=== PATIENT | female | born 1945 | race African-American/Black ===

== ENCOUNTER 2017-03-09 14:06 | Inpatient (IN) | payer OTHER ==
[2017-03-09 14:53] VITALS: BMI 20.5
[2017-03-09] MEDS ORDERED: MINERAL OIL ENEMA 133 ML ENEMA PR ONE ×2 (15:39→22:03)
--- NOTE | 2017-03-09 15:39 | PDOC ---
History of Present Illness - General History Source: Patient, Old Records Exam Limitations: No Limitations <Mireille Mendez - Last Filed: 03/09/17 15:36> - General History Source: Patient, Old Records Exam Limitations: No Limitations - History of Present Illness Initial Comments: 03/09/17 14:49 The patient is a 72-year-old woman, accompanied by family, with a significant past medical history of cerebrovascular accident, hypertension and end-stage renal disease (on hemodialysis q. MWF; last dialysis was on Thursday at 15:00PM without complications) who presents to the emergency department with complaints of constipation. She states that she arrived form [place] on February 20 and since then she has not had a bowel movement. She reports she has not even been able to pass gas. She denies any decrease appetite, fever, chills, generalized weakness. She reports she recently underwent surgery (left foot amputation on 02/24/2017; for which she is at [facility] for rehabilitation. There, she expressed her concerns of constipation. She states that she was given an enema and suppository which provided no relief. No other complaints. She denies fever, chills, diaphoresis, generalized weakness. She denies chest pain, shortness of breath, cough She denies abdominal pain, nausea, vomiting, diarrhea, dysuria, hematuria, urinary frequency and urgency, flank pain. Allergies: Acetaminophen. Oxycodone HCL Past Surgical History: Colectomy. Status post left foot amputation. Social History: Never smoked. No EtOH and recreational drug use. Check Pilot: Dr. Ailyn Cardenas Vascular Surgeon: Dr. Ascencion Cardenas <Kirti Horne - Last Filed: 03/09/17 16:39> <Lurdes Heard - Last Filed: 03/09/17 21:07> <Hanna Prasad - Last Filed: 03/09/17 21:13> - General Chief Complaint: Constipation Stated Complaint: BOWEL OBSTRUCTION Time Seen by Provider: 03/09/17 14:49 Past History - Past Medical History CVA: Yes Diabetes: Yes Dialysis: Yes (M-W-F) Disorders: Yes (DIALYSIS-M/W/FR) HTN: Yes - Surgical History Abdominal Surgery: Yes (COLECTOMY) - Immunization History Immunization Up to Date: Yes - Psycho/Social/Smoking Cessation Hx Anxiety: No Suicidal Ideation: No Smoking History: Never smoked Have you smoked in the past 12 months: No Information on smoking cessation initiated: No Hx Alcohol Use: No Drug/Substance Use Hx: No Substance Use Type: None <Mireille Mendez - Last Filed: 03/09/17 15:36> <Kirti Horne - Last Filed: 03/09/17 16:39> <Lurdes Heard - Last Filed: 03/09/17 21:07> <ShaniceHanna - Last Filed: 03/09/17 21:13> - Past Medical History Allergies/Adverse Reactions: Allergies Allergy/AdvReac Type Severity Reaction Status Date / Time No Known Allergies Allergy Verified 03/09/17 14:44 Home Medications: Ambulatory Orders Aa/Hydrolyzed Collagen, Whey [Lps Neutral Flavor Liquid] 960 ml PO DAILY Acetaminophen 325 mg PO QID 03/09/17 Amlodipine Besylate [Norvasc -] 10 mg PO DAILY 03/09/17 Aspirin [ASA -] 81 mg PO DAILY 03/09/17 B Complex W-C No.20/Folic Acid [Triphrocaps Softgel] 1 mg PO DAILY 03/09/17 Calcium Acetate [Phoslo -] 667 mg PO TIDCM 03/09/17 Clopidogrel Bisulfate [Clopidogrel] 75 mg PO DAILY 03/09/17 Docusate Sodium [Colace -] 100 mg PO DAILY 03/09/17 Hydralazine HCl [Apresoline -] 25 mg PO TID 03/09/17 Lisinopril [Zestril] 40 mg PO DAILY 03/09/17 Morphine Sulfate 15 mg PO QID 03/09/17 Sennosides [Senna] 8.6 mg PO DAILY 03/09/17 Review of Systems - Review of Systems Able to Perform ROS?: Yes Comments:: 03/09/17 14:49 GENERAL/CONSTITUTIONAL: No fever or chills. No weakness. HEAD, EYES, EARS, NOSE AND THROAT: No change in vision. No ear pain or discharge. No sore throat. CARDIOVASCULAR: No chest pain or shortness of breath. RESPIRATORY: No cough, wheezing, or hemoptysis. GASTROINTESTINAL: Yes: Constipation. No nausea, vomiting, diarrhea. GENITOURINARY: No dysuria, frequency, or change in urination. MUSCULOSKELETAL: No joint or muscle swelling or pain. No neck or back pain. SKIN: No rash NEUROLOGIC: No headache, vertigo, loss of consciousness, or change in strength/ sensation. ENDOCRINE: No increased thirst. No abnormal weight change. HEMATOLOGIC/LYMPHATIC: No anemia, easy bleeding, or history of blood clots. ALLERGIC/IMMUNOLOGIC: No hives or skin allergy. <Kirti Horne - Last Filed: 03/09/17 16:39> *Physical Exam - Vital Signs Last Vital Signs Temp Pulse Resp BP Pulse Ox 98.3 F 62 15 195/72 100 03/09/17 14:33 03/09/17 14:33 03/09/17 14:33 03/09/17 14:33 03/09/17 14:33 <Mireille Mendez - Last Filed: 03/09/17 15:36> - Vital Signs Last Vital Signs Temp Pulse Resp BP Pulse Ox 98.3 F 62 15 195/72 100 03/09/17 14:33 03/09/17 14:33 03/09/17 14:33 03/09/17 14:33 03/09/17 14:33 - Physical Exam Comments: 03/09/17 14:49 GENERAL: Awake, alert, and fully oriented, in no acute distress HEAD: No signs of trauma EYES: PERRLA, EOMI, sclera anicteric, conjunctiva clear ENT: Auricles normal inspection, hearing grossly, nares patent, oropharynx clear without exudates. NECK: Normal ROM, supple, no lymphadenopathy, JVD, or masses LUNGS: Breath sounds equal, clear to auscultation bilaterally. No wheezes, and no crackles HEART: Regular rate and rhythm, normal S1 and S2, no murmurs, rubs or gallops ABDOMEN: Soft, slight right lower quadrant tenderness to palpation normoactive bowel sounds. No guarding, no rebound. No masses EXTREMITIES: There is a left upper extremity AV fistula with palpable thrill. Status post left foot amputation. Dressings intact. No clubbing or cyanosis. No cords, erythema, edema or tenderness. NEUROLOGICAL: Cranial nerves II through XII grossly intact. Normal speech. <Kirti Horne - Last Filed: 03/09/17 16:39> - Vital Signs Last Vital Signs Temp Pulse Resp BP Pulse Ox 98.3 F 62 15 195/72 100 03/09/17 14:33 03/09/17 14:33 03/09/17 14:33 03/09/17 14:33 03/09/17 14:33 <Lurdes Heard - Last Filed: 03/09/17 21:07> - Vital Signs Last Vital Signs Temp Pulse Resp BP Pulse Ox 98.3 F 62 15 195/72 100 03/09/17 14:33 03/09/17 14:33 03/09/17 14:33 03/09/17 14:33 03/09/17 14:33 <Hanna Prasad - Last Filed: 03/09/17 21:13> ED Treatment Course - RADIOLOGY Radiology Studies Ordered: Category Date Time Status KUB (KID UR & BLAD) [RAD] Stat Radiology 03/09/17 15:05 Ordered <Mireille Menedz - Last Filed: 03/09/17 15:36> - LABORATORY CBC & Chemistry Diagram: 03/09/17 15:05 03/09/17 15:05 - ADDITIONAL ORDERS Additional order review: Laboratory Results 03/09/17 15:05 Sodium 137 Potassium 4.3 D Chloride 95 L Carbon Dioxide 28 Anion Gap 14 BUN 43 H D Creatinine 8.4 H* Creat Clearance w eGFR 4.68 Random Glucose 96 Calcium 10.9 H D Phosphorus 4.4 Magnesium 2.7 H Total Bilirubin 0.4 D AST 11 L D ALT 7 L Alkaline Phosphatase 105 D Creatine Kinase 39 Troponin I < 0.02 Total Protein 7.4 Albumin 3.0 L Lipase 68 L 03/09/17 15:05 RBC 3.15 L D MCV 89.3 MCHC 30.8 L RDW 19.6 H MPV 9.3 Neutrophils % 80.1 D Lymphocytes % 10.1 D Monocytes % 8.4 Eosinophils % 1.1 Basophils % 0.3 - Medications Given in the ED: ED Medications Discontinued Medications Generic Name Dose Route Start Last Admin Trade Name Freq PRN Reason Stop Dose Admin Mineral Oil 133 ml 03/09/17 15:39 03/09/17 17:16 Fleet Mineral Oil Rectal Enema - GA 03/09/17 15:40 133 ml NOW ONE Administration <Lurdes Heard - Last Filed: 03/09/17 21:07> - LABORATORY CBC & Chemistry Diagram: 03/09/17 15:05 03/09/17 15:05 - ADDITIONAL ORDERS Additional order review: Laboratory Results 03/09/17 15:05 Sodium 137 Potassium 4.3 D Chloride 95 L Carbon Dioxide 28 Anion Gap 14 BUN 43 H D Creatinine 8.4 H* Creat Clearance w eGFR 4.68 Random Glucose 96 Calcium 10.9 H D Phosphorus 4.4 Magnesium 2.7 H Total Bilirubin 0.4 D AST 11 L D ALT 7 L Alkaline Phosphatase 105 D Creatine Kinase 39 Troponin I < 0.02 Total Protein 7.4 Albumin 3.0 L Lipase 68 L 03/09/17 15:05 RBC 3.15 L D MCV 89.3 MCHC 30.8 L RDW 19.6 H MPV 9.3 Neutrophils % 80.1 D Lymphocytes % 10.1 D Monocytes % 8.4 Eosinophils % 1.1 Basophils % 0.3 - Medications Given in the ED: ED Medications Discontinued Medications Generic Name Dose Route Start Last Admin Trade Name Freq PRN Reason Stop Dose Admin Mineral Oil 133 ml 03/09/17 15:39 03/09/17 17:16 Fleet Mineral Oil Rectal Enema - GA 03/09/17 15:40 133 ml NOW ONE Administration - Consult/PCP Time Called: 21:12 (Dr. Perez will make sure the patient receives dialysis in the morning.) Case discussed with personal care physician: Chris Nolasco <Hanna Prasad - Last Filed: 03/09/17 21:13> Medical Decision Making - Medical Decision Making 03/09/17 15:36 72-year-old female with history of hypertension, CVA, end-stage renal disease on hemodialysis Thursday status post a B patient of toes on left foot presents the emergency department with constipation 3 weeks. The patient is passing gas and denies abdominal pain, nausea, vomiting. Differential diagnosis includes but is not limited to: Constipation secondary to opiate use, slow transit time, fecal impaction, dehydration, electrolyte abnormality, toxic/ metabolic derangement. Plan: 1. Labs 2. KUB 3. Fleet enema 4. Observe and reevaluate <Mireille Mendez - Last Filed: 03/09/17 15:36> *DC/Admit/Observation/Transfer - Attestations Physician Attestion: 03/09/17 15:38 I, Dr. Mireille Mendez, attest that the scribes documentation that appears above has been prepared under my direction and personally reviewed by me in its entirety. I confirmed that the note above accurately reflects all work, treatment, procedures, and medical decision-making performed by me. <Mireille Mendez - Last Filed: 03/09/17 15:36> - Attestations Scribe Attestion: 03/09/17 14:49 Documentation prepared by Kirti Horne, acting as biomedical technician for Mireille Mendez MD. <Kirti Horne - Last Filed: 03/09/17 16:39> - Discharge Dispostion Admit: Yes <Lurdes Heard - Last Filed: 03/09/17 21:07> <Hanna Prasad - Last Filed: 03/09/17 21:13> Diagnosis at time of Disposition: Impaction of colon, ESRD (end stage renal disease) Constipation Qualifiers: Constipation type: other constipation type Qualified Code(s): K59.09 - Other constipation Anemia Qualifiers: Anemia type: other cause Other causes of anemia: other cause, not classified Qualified Code(s): D64.89 - Other specified anemias - Referrals Referrals: Raymon Hernandez MD [Primary Care Provider] -
[2017-03-09 17:51] LABS: ANION GAP 14 (8-16); CALCIUM 10.9 mg/dL (8.5-10.1); CO2 28 mmol/L (21-32); GLUCOSE,RANDOM 96 mg/dL (74-106); MAGNESIUM 2.7 mg/dL (1.8-2.4); PHOSPHOROUS 4.4 mg/dL (2.5-4.9); SGOT/AST 11 U/L (15-37); SGPT/ALT 7 U/L (12-78)
[2017-03-09 17:56] LABS: ALK PHOS 105 U/L (45-117); BILIRUBIN,TOTAL 0.4 mg/dL (0.2-1.0); TOT PROT 7.4 g/dl (6.4-8.2); TROPONIN I < 0.02 ng/ml (0.00-0.05)
[2017-03-09 17:59] LABS: CREATININE 8.4 mg/dL (0.55-1.02)
[2017-03-09 18:46] LABS: BASOPHIL 0.3 % (0-2.0); EOSINOPHIL 1.1 % (0-4.5); MCH 27.5 pg (25.7-33.7); MCHC 30.8 g/dl (32.0-36.0); MEAN CELL VOLUME 89.3 fl (80-96); MEAN PLT VOLUME 9.3 fl (7.5-11.1); NEUTROPHILS 80.1 % (42.8-82.8); PLATELET COUNT 323 K/MM3 (134-434); RDW 19.6 % (11.6-15.6); WHITE BLOOD COUNT 11.1 K/mm3 (4.0-10.0)
[2017-03-09] MEDS ORDERED: morphine CARPU-JECT 2 MG/1 ML DISP.SYRIN IVPUSH ONE (21:55)
[2017-03-09] MEDS ORDERED: morphine CARPU-JECT 2 MG/1 ML DISP.SYRIN IVPUSH PRN (22:03)
[2017-03-09] MEDS ORDERED: MAGNESIUM HYDROX 2400MG/30ML ORAL SUSPENSION 30 ML CUP PO PRN (22:03)
[2017-03-09] MEDS ORDERED: ONDANSETRON 4 MG/2 ML VIAL IVPB PRN (22:03)
[2017-03-09] MEDS ORDERED: ACETAMINOPHEN 1000 MG/100 ML VIAL (NON FORMULARY) IVPB PRN (22:03)
[2017-03-09] MEDS ORDERED: DEXTROSE 5%-NORMAL SALINE 1,000 ML IV SCH (22:15)
[2017-03-10 00:28] LABS: MCH 27.5 pg (25.7-33.7); MCHC 30.9 g/dl (32.0-36.0); MEAN PLT VOLUME 9.3 fl (7.5-11.1); PLATELET COUNT 304 K/MM3 (134-434); RDW 18.9 % (11.6-15.6); WHITE BLOOD COUNT 9.9 K/mm3 (4.0-10.0)
[2017-03-10 00:29] LABS: URINE APPEARANCE SLCLOUDY; URINE BILIRUBIN NEGATIVE (NEGATIVE); URINE BLOOD NEGATIVE (NEGATIVE); URINE COLOR DKYELLOW; URINE GLUCOSE (UA) NEGATIVE (NEGATIVE); URINE KETONE NEGATIVE (NEGATIVE); URINE NITRITE NEGATIVE (NEGATIVE); URINE UROBILINOGEN NEGATIVE E.U./dl (0.2-1.0)
[2017-03-10 00:35] LABS: URINE LEUK ESTERASE TRACE (NEGATIVE); URINE PROTEIN 3+ (NEGATIVE)
[2017-03-10 00:39] LABS: URINE BACTERIA FEW /hpf (NONE SEEN); URINE MUCUS RARE; URINE RBC 3 /hpf (0-3); URINE WBC 10 /hpf (3-5)
[2017-03-10 00:52] LABS: ALBUMIN 2.9 g/dl (3.4-5.0); BILIRUBIN,TOTAL 0.4 mg/dL (0.2-1.0); CALCIUM 10.6 mg/dL (8.5-10.1); TOT PROT 7.4 g/dl (6.4-8.2)
[2017-03-10 00:57] LABS: COCKROFT - GAULT 4.692
[2017-03-10 09:50] LABS: MAGNESIUM 2.7 mg/dL (1.8-2.4); PHOSPHOROUS 4.3 mg/dL (2.5-4.9)
[2017-03-10] MEDS ORDERED: POLYETHYLENE GLYCOL 3350 119 GM BTL PO SCH ×2 (10:00→22:00)
[2017-03-10] MEDS ORDERED: EPOETIN ALFA 10,000 UNIT/1 ML VIAL IVPUSH ONE (10:00)
[2017-03-10] MEDS ORDERED: HEPARIN NA (PORCINE) 5,000 UNITS/ML 1ML VIAL IVPUSH ONE (10:00)
--- NOTE | 2017-03-10 10:04 | HP ---
Admitting History and Physical - Primary Care Physician PCP: Raymon Hernandez - Admission Chief Complaint: sent in for constipation History of Present Illness: The patient is a 72-year-old woman, accompanied by family, with a significant past medical history of cerebrovascular accident, hypertension and end-stage renal disease (on hemodialysis q. MWF; last dialysis was on Thursday at 15:00PM without complications) who presents to the emergency department with complaints of constipation. . She reports she recently underwent surgery (left foot amputation sec to toe necrosis on 02/24/2017;at [facility] where she also have left foot angiogram and angioplasty and was then sent to [facility] for rehabilitation. There, she expressed her concerns of constipation. She states that she was given an enema and suppository, miralax and stool softners which provided no relief. patient has been on opioid pain medication after the foot surgery She denies fever, chills, diaphoresis, generalized weakness. She denies chest pain, shortness of breath, cough She denies abdominal pain, nausea, vomiting, diarrhea, dysuria, hematuria, urinary frequency and urgency, flank pain. Allergies: Acetaminophen. Oxycodone HCL Past Surgical History: Colectomy. Status post left foot amputation. Social History: Never smoked. No EtOH and recreational drug use. Assembler Installer General: Dr. Ailyn Cardenas Vascular Surgeon: Dr. Ascencion Cardenas History Source: Patient, Medical Record - Past Medical History Cardiovascular: Yes: HTN, Other (PAD) Renal/: Yes: Hemodialysis - Past Surgical History Past Surgical History: Yes: AV Fistula/Graft Additional Past Surgical History: left foot transmetatarsal amputation - Smoking History Smoking history: Never smoked Have you smoked in the past 12 months: No - Alcohol/Substance Use Hx Alcohol Use: No Home Medications - Allergies Allergies/Adverse Reactions: Allergies Allergy/AdvReac Type Severity Reaction Status Date / Time oxycodone Allergy Intermediate Verified 03/10/17 07:15 - Home Medications Home Medications: Ambulatory Orders Aa/Hydrolyzed Collagen, Whey [Lps Neutral Flavor Liquid] 960 ml PO DAILY Acetaminophen 325 mg PO QID 03/09/17 Amlodipine Besylate [Norvasc -] 10 mg PO DAILY 03/09/17 Aspirin [ASA -] 81 mg PO DAILY 03/09/17 B Complex W-C No.20/Folic Acid [Triphrocaps Softgel] 1 mg PO DAILY 03/09/17 Calcium Acetate [Phoslo -] 667 mg PO TIDCM 03/09/17 Clopidogrel Bisulfate [Clopidogrel] 75 mg PO DAILY 03/09/17 Docusate Sodium [Colace -] 100 mg PO DAILY 03/09/17 Hydralazine HCl [Apresoline -] 25 mg PO TID 03/09/17 Lisinopril [Zestril] 40 mg PO DAILY 03/09/17 Morphine Sulfate 15 mg PO QID 03/09/17 Sennosides [Senna] 8.6 mg PO DAILY 03/09/17 Review of Systems - Review of Systems Gastrointestinal: reports: Constipation Physical Examination Vital Signs: Vital Signs Temperature 98.6 F 03/10/17 09:15 Pulse Rate 57 L 03/10/17 09:15 Respiratory Rate 18 03/10/17 09:15 Blood Pressure 128/49 03/10/17 09:15 O2 Sat by Pulse Oximetry (%) 98 03/09/17 23:00 Findings/Remarks: currently getting HD no BM as yet, got mineral oil enema Constitutional: Yes: Calm, Thin Cardiovascular: Yes: Regular Rate and Rhythm, S1, S2 Respiratory: Yes: CTA Bilaterally Gastrointestinal: Yes: Soft, Hypoactive Bowel Sounds, Other (no tenderness) Edema: No Neurological: Yes: Alert, Oriented Labs: CBC, BMP 03/10/17 00:12 03/10/17 00:12 Imaging - Results X-ray: Report Reviewed Problem List - Problems (1) Constipation Assessment/Plan: sec to narcotic pain medicaiton and possible slow transit time/ileus will get surgery and GI to see patient NPO for now iv fluids monitor lytes Code(s): K59.00 - CONSTIPATION, UNSPECIFIED Qualifiers: Constipation type: other constipation type Qualified Code(s): K59.09 - Other constipation (2) ESRD (end stage renal disease) Assessment/Plan: HD per renal Code(s): N18.6 - END STAGE RENAL DISEASE (3) PAD (peripheral artery disease) Assessment/Plan: s/p left foot transmatatarsal amputation vascular consult/wound care hold plavix and aspirin for now in patient requires any interventional procedure Code(s): I73.9 - PERIPHERAL VASCULAR DISEASE, UNSPECIFIED (4) Anemia Assessment/Plan: sec to ESRD epogen during HD Code(s): D64.9 - ANEMIA, UNSPECIFIED Qualifiers: Other causes of anemia: other cause, not classified Qualified Code(s): D64.89 - Other specified anemias (5) HTN (hypertension) Assessment/Plan: curently BP is ok if elevates then restart norvasc 10mg and hydralazine 25mg tid Code(s): I10 - ESSENTIAL (PRIMARY) HYPERTENSION
--- NOTE | 2017-03-10 11:37 | CONSULT ---
Consult - text type - Consultation Consultation Note: Renal Consult for ESRD on HD This is a 72 year old woman with PMhx of ESRD on HD (MWF), DM Type 2, Hypertension, CVA, PVD s/p recent TMA, Hx of partial Colectomy who presented with complaints of constipation. Pt reports coming from [place] on the 20 of February and has not had a BM since then. S/p TMA at [facility] after coming from [place] and has been on opioid pain meds. Denies any N/V. No Abd pain. no fever or chills. Last dialysis as an outpatient was Thursday. Tolerating dialysis well today. PMhx: as above Allergies: Oxycodone Family hx: NC Social hx: No T/A/D ROS: as per HPI, all other pertinent ros negative Home Medications Medication Instructions Recorded Aa/Hydrolyzed Collagen, Whey [Lps 960 ml PO DAILY 03/09/17 Neutral Flavor Liquid] Acetaminophen 325 mg PO QID 03/09/17 Amlodipine Besylate [Norvasc -] 10 mg PO DAILY 03/09/17 Aspirin [ASA -] 81 mg PO DAILY 03/09/17 B Complex W-C No.20/Folic Acid 1 mg PO DAILY 03/09/17 [Triphrocaps Softgel] Calcium Acetate [Phoslo -] 667 mg PO TIDCM 03/09/17 Clopidogrel Bisulfate [Clopidogrel] 75 mg PO DAILY 03/09/17 Docusate Sodium [Colace -] 100 mg PO DAILY 03/09/17 Hydralazine HCl [Apresoline -] 25 mg PO TID 03/09/17 Lisinopril [Zestril] 40 mg PO DAILY 03/09/17 Morphine Sulfate 15 mg PO QID 03/09/17 Sennosides [Senna] 8.6 mg PO DAILY 03/09/17 Vital Signs Temperature 98.6 F 03/10/17 09:15 Pulse Rate 60 03/10/17 11:10 Respiratory Rate 18 03/10/17 11:10 Blood Pressure 151/58 03/10/17 11:10 O2 Sat by Pulse Oximetry (%) 98 03/09/17 23:00 Intake & Output 03/07/17 03/08/17 03/09/17 03/10/17 23:59 23:59 23:59 23:59 Intake Total 83 581 Output Total 30 Balance 53 581 Weight 116 lb 127 lb Gen: NAD, awake and alert HEENT: NC/AT, MMM, No JVD CVS: RRR, No M/R Lungs: CTA, no rales or wheeze Abd: soft NT/ND Ext: No edema, clubbing or cyanosis Neuro: AAOX3, no focal defects Access: Left ARM AVF CBC, BMP 03/10/17 00:12 03/10/17 00:12 Current Medications Acetaminophen (Ofirmev Injection -) 1,000 mg IVPB Q6H PRN PRN Reason: FEVER OR PAIN Stop: 03/10/17 16:04 Pantoprazole Sodium (Protonix 40mg Ivpb (Pre-Docked)) 100 mls @ 200 mls/hr IVPB DAILY GEOVANI Magnesium Hydroxide (Milk Of Magnesia -) 30 ml PO Q8H PRN PRN Reason: INDIGESTION Morphine Sulfate (Morphine Injection -) 2 mg IVPUSH Q4H PRN PRN Reason: PAIN Ondansetron HCl (Zofran Injection) 4 mg IVPB Q6H PRN PRN Reason: NAUSEA Polyethylene Glycol (Miralax (For Daily Use) -) 17 gm PO BID GEOVANI A/P 72 year old woman with PMhx of ESRD on HD (MWF), DM Type 2, Hypertension, CVA, PVD s/p recent TMA, Hx of partial Colectomy who presented with complaints of constipation. #ESRD on HD Tolerating dialysis today will continue TIW HD as an inpatient Dose all meds for intermittent HD #Fecal Impaction/Constipation On PO Miralax GI and Surgical consult ordered avoidance of opioid pain meds #CKD related Anemia Continue Epogen with HD Trend H/H #Renal Osteodystrophy Check phos levels Thank you Will follow Chris Nolasco DO
--- NOTE | 2017-03-10 11:48 | EKG ---
Test Reason : Blood Pressure : / mmHG Vent. Rate : 060 BPM Atrial Rate : 060 BPM P-R Int : 182 ms QRS Dur : 110 ms QT Int : 428 ms P-R-T Axes : 049 -17 004 degrees QTc Int : 428 ms NORMAL SINUS RHYTHM LEFT ATRIAL ENLARGEMENT LEFT VENTRICULAR HYPERTROPHY ABNORMAL ECG WHEN COMPARED WITH ECG OF 05-APR-2016 11:52, ST ELEVATION NOW PRESENT IN LATERAL LEADS NONSPECIFIC T WAVE ABNORMALITY NOW EVIDENT IN ANTERIOR LEADS CLINICAL CORRELATION IS RECOMMENDED Confirmed by LILIAN MIRAMONTES, NATASHA ([id number]) on 03/10/2017 11:47:40 AM Referred By: Confirmed By:NATASHA QUINTANA MD
--- NOTE | 2017-03-10 12:49 | CONSULT ---
Consult - Past Medical History Cardio/Vascular: Yes: HTN, Other (PAD) Renal/: Yes: Hemodialysis - Past Surgical History Past Surgical History: Yes: AV Fistula/Graft - Alcohol/Substance Use Hx Alcohol Use: No - Smoking History Smoking history: Never smoked Have you smoked in the past 12 months: No Home Medications - Allergies Allergies/Adverse Reactions: Allergies Allergy/AdvReac Type Severity Reaction Status Date / Time oxycodone Allergy Intermediate Verified 03/10/17 07:15 - Home Medications Home Medications: Ambulatory Orders Aa/Hydrolyzed Collagen, Whey [Lps Neutral Flavor Liquid] 960 ml PO DAILY Acetaminophen 325 mg PO QID 03/09/17 Amlodipine Besylate [Norvasc -] 10 mg PO DAILY 03/09/17 Aspirin [ASA -] 81 mg PO DAILY 03/09/17 B Complex W-C No.20/Folic Acid [Triphrocaps Softgel] 1 mg PO DAILY 03/09/17 Calcium Acetate [Phoslo -] 667 mg PO TIDCM 03/09/17 Clopidogrel Bisulfate [Clopidogrel] 75 mg PO DAILY 03/09/17 Docusate Sodium [Colace -] 100 mg PO DAILY 03/09/17 Hydralazine HCl [Apresoline -] 25 mg PO TID 03/09/17 Lisinopril [Zestril] 40 mg PO DAILY 03/09/17 Morphine Sulfate 15 mg PO QID 03/09/17 Sennosides [Senna] 8.6 mg PO DAILY 03/09/17 Physical Exam Vital Signs: Vital Signs Temperature 98.6 F 03/10/17 09:15 Pulse Rate 60 03/10/17 11:10 Respiratory Rate 18 03/10/17 11:10 Blood Pressure 151/58 03/10/17 11:10 O2 Sat by Pulse Oximetry (%) 98 03/09/17 23:00 Labs: CBC, BMP 03/10/17 00:12 03/10/17 00:12 Assessment/Plan Vascular Surgery The patient is a 72-year-old woman, accompanied by family, with a significant past medical history of cerebrovascular accident, hypertension and end-stage renal disease (on hemodialysis q. MWF; last dialysis was on Thursday at 15:00PM without complications) who presents to the emergency department with complaints of constipation. She states that she arrived form [place] on February 20 and since then she has not had a bowel movement. She reports she has not even been able to pass gas. She denies any decrease appetite, fever, chills, generalized weakness. She reports she recently underwent surgery (left foot amputation on 02/24/2017; for which she is at [facility] for rehabilitation. There, she expressed her concerns of constipation. She states that she was given an enema and suppository which provided no relief. No other complaints. Recently had Left TMA at [facility] by Dr. Martinez. PE Head - NC/At Lung - CTA Heart - RRR abd - soft,nt,nd Ext - Left foot tma clean , pink. Two open areas. warm. A/P S/P left TMA at [facility] Healing well Bacitracin to suture line daily Ascencion Cardenas DO
[2017-03-10] MEDS: BACITRACIN 30 GM TUBE TOPICAL OINTMENT TP SCH (14:12)
[2017-03-10] MEDS: PANTOPRAZOLE SODIUM 100 ML IVPB SCH (14:12)
--- NOTE | 2017-03-10 14:29 | CONSULT ---
Consult Consult Specialty:: Surgery Reason for Consultation:: Bowel obstruction - History of Present Illness Chief Complaint: Abdominal distention and pain History of Present Illness: 72 female presents to the hospital for evaluation + Vomiting and nausea Having difficulty passing bowel movements- has not had one in several days States that she was having significant abdominal pain Had recent foot surgery for which she was placed on opioid pain medication States pain has significantly improved and almost fully resolved - History Source History Provided By: Patient, Medical Record Limitations to Obtaining History: No Limitations - Past Medical History Cardio/Vascular: Yes: HTN, Other (PAD) Renal/: Yes: Hemodialysis - Past Surgical History Past Surgical History: Yes: AV Fistula/Graft - Alcohol/Substance Use Hx Alcohol Use: No - Smoking History Smoking history: Never smoked Have you smoked in the past 12 months: No Home Medications - Allergies Allergies/Adverse Reactions: Allergies Allergy/AdvReac Type Severity Reaction Status Date / Time oxycodone Allergy Intermediate Verified 03/10/17 07:15 - Home Medications Home Medications: Ambulatory Orders Aa/Hydrolyzed Collagen, Whey [Lps Neutral Flavor Liquid] 960 ml PO DAILY Acetaminophen 325 mg PO QID 03/09/17 Amlodipine Besylate [Norvasc -] 10 mg PO DAILY 03/09/17 Aspirin [ASA -] 81 mg PO DAILY 03/09/17 B Complex W-C No.20/Folic Acid [Triphrocaps Softgel] 1 mg PO DAILY 03/09/17 Calcium Acetate [Phoslo -] 667 mg PO TIDCM 03/09/17 Clopidogrel Bisulfate [Clopidogrel] 75 mg PO DAILY 03/09/17 Docusate Sodium [Colace -] 100 mg PO DAILY 03/09/17 Hydralazine HCl [Apresoline -] 25 mg PO TID 03/09/17 Lisinopril [Zestril] 40 mg PO DAILY 03/09/17 Morphine Sulfate 15 mg PO QID 03/09/17 Sennosides [Senna] 8.6 mg PO DAILY 03/09/17 Family Disease History - Family Disease History Family History: Unremarkable Review of Systems - Review of Systems Constitutional: denies: Chills, Fever HENT: reports: No Symptoms Neck: reports: No Symptoms Cardiovascular: denies: Chest Pain Respiratory: denies: Cough Gastrointestinal: reports: Abdominal Pain, Nausea, Vomiting. denies: Diarrhea Genitourinary: reports: No Symptoms Neurological: denies: Change in LOC Pain Intensity: 3 Physical Exam Vital Signs: Vital Signs Temperature 98.6 F 03/10/17 09:15 Pulse Rate 60 03/10/17 13:30 Respiratory Rate 18 03/10/17 13:30 Blood Pressure 164/69 03/10/17 13:30 O2 Sat by Pulse Oximetry (%) 98 03/10/17 09:00 Constitutional: Yes: Calm HENT: Yes: WNL Neck: Yes: Supple Cardiovascular: Yes: Regular Rate and Rhythm Respiratory: Yes: Regular Gastrointestinal: Yes: Soft, Other (Well healed midline scar). No: Distention, Tenderness, Tenderness, Rebound Neurological: Yes: Alert, Oriented Labs: CBC, BMP 03/10/17 00:12 Imaging - Results X-ray: Report Reviewed, Image Reviewed Problem List - Problems (1) Constipation Code(s): K59.00 - CONSTIPATION, UNSPECIFIED Qualifiers: Constipation type: other constipation type Qualified Code(s): K59.09 - Other constipation (2) Impaction of colon Code(s): K56.49 - OTHER IMPACTION OF INTESTINE Assessment/Plan 72 female with fecal impaction No signs of obstruction Bowel regimen GI consulted No emergent surgical intervention needed Thank you
[2017-03-10 14:48] LABS: CREATININE 2.1 mg/dL (0.55-1.02)
--- NOTE | 2017-03-10 15:24 | CON.GI ---
Consult Consult Specialty:: gastroenterology Reason for Consultation:: constipation - History of Present Illness History of Present Illness: 72 y/o female was transferred from [facility] because if abdominal pain , nausea, vomiting and constipation. After the amputation she received codeine for pain. Abdominal x-ray fail to show any obstructions. She is NPO at this time. [id number] enema was given last night with no relief of her symptoms. - Past Medical History Cardio/Vascular: Yes: HTN, Other (PAD) Renal/: Yes: Hemodialysis - Past Surgical History Past Surgical History: Yes: AV Fistula/Graft - Alcohol/Substance Use Hx Alcohol Use: No - Smoking History Smoking history: Never smoked Have you smoked in the past 12 months: No Home Medications - Allergies Allergies/Adverse Reactions: Allergies Allergy/AdvReac Type Severity Reaction Status Date / Time oxycodone Allergy Intermediate Verified 03/10/17 07:15 - Home Medications Home Medications: Ambulatory Orders Aa/Hydrolyzed Collagen, Whey [Lps Neutral Flavor Liquid] 960 ml PO DAILY Acetaminophen 325 mg PO QID 03/09/17 Amlodipine Besylate [Norvasc -] 10 mg PO DAILY 03/09/17 Aspirin [ASA -] 81 mg PO DAILY 03/09/17 B Complex W-C No.20/Folic Acid [Triphrocaps Softgel] 1 mg PO DAILY 03/09/17 Calcium Acetate [Phoslo -] 667 mg PO TIDCM 03/09/17 Clopidogrel Bisulfate [Clopidogrel] 75 mg PO DAILY 03/09/17 Docusate Sodium [Colace -] 100 mg PO DAILY 03/09/17 Hydralazine HCl [Apresoline -] 25 mg PO TID 03/09/17 Lisinopril [Zestril] 40 mg PO DAILY 03/09/17 Morphine Sulfate 15 mg PO QID 03/09/17 Sennosides [Senna] 8.6 mg PO DAILY 03/09/17 Physical Exam-GI Vital Signs: Vital Signs Temperature 98.6 F 03/10/17 09:15 Pulse Rate 60 03/10/17 13:30 Respiratory Rate 18 03/10/17 13:30 Blood Pressure 164/69 03/10/17 13:30 O2 Sat by Pulse Oximetry (%) 98 03/10/17 09:00 Constitutional: Yes: Well Nourished Eyes: Yes: Conjunctiva Clear HENT: Yes: Atraumatic Neck: Yes: Supple Cardiovascular: Yes: Regular Rate and Rhythm Respiratory: Yes: CTA Bilaterally ...Palpate: Yes: Soft. No: Firm/Rigid, Guarding, Hepatomegaly, Mass, Pulsatile Mass, Splenomegaly, Tenderness Labs: CBC, BMP 03/10/17 00:12 03/10/17 13:20 Imaging - Results X-ray: Report Reviewed (--fecal impaction) Problem List - Problems (1) Constipation Assessment/Plan: Opiod induced R> Relistor [place] enemas Zofran reglan clear liquids Code(s): K59.00 - CONSTIPATION, UNSPECIFIED Qualifiers: Constipation type: other constipation type Qualified Code(s): K59.09 - Other constipation
[2017-03-10] MEDS ORDERED: MINERAL OIL ENEMA 133 ML ENEMA PR ONE (16:30)
[2017-03-10] MEDS: Methylnaltrexone Bromide 12 MG/0.6 ML KIT SQ SCH (17:40)
[2017-03-10] MEDS: METOCLOPRAMIDE HCL 10 MG TABLET (FP) PO SCH (17:41)
[2017-03-10] MEDS: ONDANSETRON 4 MG/2 ML VIAL IVPB SCH ×2 (17:42→20:24)
[2017-03-10] MEDS ORDERED: PT OWN MED DRAWER 7, Y5N ONE ×2 (18:16→18:25)
[2017-03-11] MEDS: ONDANSETRON 4 MG/2 ML VIAL IVPB SCH ×2 (00:47→04:06)
[2017-03-11] MEDS ORDERED: ONDANSETRON 4 MG/2 ML VIAL IVPB PRN (04:20)
[2017-03-11] MEDS: METOCLOPRAMIDE HCL 10 MG TABLET (FP) PO SCH ×3 (06:22→16:48)
[2017-03-11 08:09] LABS: BASOPHIL 1.1 % (0-2.0); EOSINOPHIL 1.1 % (0-4.5); MCHC 31.7 g/dl (32.0-36.0); MEAN CELL VOLUME 88.3 fl (80-96); MEAN PLT VOLUME 8.7 fl (7.5-11.1); PLATELET COUNT 262 K/MM3 (134-434); RDW 19.2 % (11.6-15.6); WHITE BLOOD COUNT 9.2 K/mm3 (4.0-10.0)
[2017-03-11] MEDS ORDERED: morphine SULFATE IMMEDIATE RELEASE 30 MG TAB PO PRN (08:36)
--- NOTE | 2017-03-11 08:38 | PN ---
Progress Note, Physician History of Present Illness: no abdominal pain - Current Medication List Current Medications: Active Medications Bacitracin (Bacitracin -) 1 applic TP DAILY [facility] Last Admin: 03/10/17 14:12 Dose: 1 applic Pantoprazole Sodium (Protonix 40mg Ivpb (Pre-Docked)) 100 mls @ 200 mls/hr IVPB DAILY [facility] Last Admin: 03/10/17 14:12 Dose: 200 mls/hr Methylnaltrexone [place] (Relistor -) 4 mg SQ Q2D@1000 [facility] Last Admin: 03/10/17 17:40 Dose: 4 mg Metoclopramide HCl (Reglan -) 5 mg PO TIDAC [facility] Stop: 03/12/17 23:59 Last Admin: 03/11/17 06:22 Dose: 5 mg Metoprolol Tartrate (Lopressor -) 25 mg PO BID [facility] Ondansetron HCl (Zofran Injection) 4 mg IVPB Q4H PRN PRN Reason: NAUSEA AND/OR VOMITING - Objective Vital Signs: Vital Signs Temperature 98.6 F 03/11/17 06:00 Pulse Rate 71 03/11/17 06:00 Respiratory Rate 18 03/11/17 06:00 Blood Pressure 162/92 03/11/17 06:00 O2 Sat by Pulse Oximetry (%) 98 03/10/17 21:00 Cardiovascular: Yes: Regular Rate and Rhythm Respiratory: Yes: Regular, CTA Bilaterally Gastrointestinal: Yes: Normal Bowel Sounds, Soft. No: Tenderness Labs: CBC, BMP 03/11/17 07:00 Assessment/Plan - Problems (1) Constipation Assessment/Plan: sec to narcotic pain medicaiton and possible slow transit time/ileus will get surgery and GI to see patient clear liquids dc iv fluids monitor lytes Code(s): K59.00 - CONSTIPATION, UNSPECIFIED Qualifiers: Constipation type: other constipation type Qualified Code(s): K59.09 - Other constipation (2) ESRD (end stage renal disease) Assessment/Plan: HD per renal Code(s): N18.6 - END STAGE RENAL DISEASE (3) PAD (peripheral artery disease) Assessment/Plan: s/p left foot transmatatarsal amputation vascular consult/wound care hold plavix and aspirin for now in patient requires any interventional procedure Code(s): I73.9 - PERIPHERAL VASCULAR DISEASE, UNSPECIFIED (4) Anemia Assessment/Plan: sec to ESRD epogen during HD Code(s): D64.9 - ANEMIA, UNSPECIFIED Qualifiers: Other causes of anemia: other cause, not classified Qualified Code(s): D64.89 - Other specified anemias (5) HTN (hypertension) Assessment/Plan: curently BP is high resume meds if elevates then restart norvasc 10mg and hydralazine 25mg tid Code(s): I10 - ESSENTIAL (PRIMARY) HYPERTENSION (6) Abnormal ekg Assessment/Plan: repeat ekg echo ce cardio
[2017-03-11 08:39] LABS: ALBUMIN 2.8 g/dl (3.4-5.0); ANION GAP 9 (8-16); CALCIUM 10.2 mg/dL (8.5-10.1); CO2 36 mmol/L (21-32); CREATININE 5.3 mg/dL (0.55-1.02); GLUCOSE,RANDOM 83 mg/dL (74-106); PHOSPHOROUS 4.2 mg/dL (2.5-4.9); SGOT/AST 9 U/L (15-37); SGPT/ALT 6 U/L (12-78)
[2017-03-11 08:41] LABS: ALK PHOS 99 U/L (45-117); BILIRUBIN,TOTAL 0.5 mg/dL (0.2-1.0); TOT PROT 7.3 g/dl (6.4-8.2)
[2017-03-11 09:02] LABS: CHOLESTEROL 173 mg/dL (50-200); LDL CHOLESTEROL (ONLY SJRH) 96 mg/dL (5-100)
[2017-03-11 09:10] LABS: THYROID STIMULATING HORMONE 2.32 uIU/ml (0.358-3.74); TROPONIN I < 0.02 ng/ml (0.00-0.05)
[2017-03-11] MEDS: CLOPIDOGREL BISULFATE 75 MG TABLET (FP) PO SCH (09:34)
[2017-03-11] MEDS: ASPIRIN 81 MG CHEWABLE TABLETS PO SCH (09:34)
[2017-03-11] MEDS: PANTOPRAZOLE SODIUM 100 ML IVPB SCH (09:35)
[2017-03-11] MEDS: METOPROLOL TARTRATE 25 MG TABLET (FP) PO SCH ×2 (09:55→21:33)
--- NOTE | 2017-03-11 09:55 | PN ---
Progress Note (short form) - Note Progress Note: No acute events No abdominal pain No BM Vital Signs Period Temp Pulse Resp BP Sys/Leyva Pulse Ox Last 24 Hr 98.4 F-99.6 F 59-71 15-18 102-164/52-92 98 Abd soft, NT CBC, BMP 03/11/17 07:00 03/11/17 07:00 On clears Bowel regimen Problem List - Problems (1) Constipation Code(s): K59.00 - CONSTIPATION, UNSPECIFIED Qualifiers: Constipation type: other constipation type Qualified Code(s): K59.09 - Other constipation (2) Impaction of colon Code(s): K56.49 - OTHER IMPACTION OF INTESTINE
--- NOTE | 2017-03-11 11:54 | PN ---
Progress Note (short form) - Note Progress Note: Renal Follow up for ESRD on HD Pt seen and examined at the bedside no BM's yet denies any abd pain, N/V no sob, chest pain s/p dialysis yesterday Vital Signs Temperature 98.7 F 03/11/17 10:00 Pulse Rate 61 03/11/17 10:00 Respiratory Rate 20 03/11/17 10:00 Blood Pressure 178/58 03/11/17 10:00 O2 Sat by Pulse Oximetry (%) 98 03/10/17 21:00 Intake & Output 03/08/17 03/09/17 03/10/17 03/11/17 23:59 23:59 23:59 23:59 Intake Total 83 1081 200 Output Total 30 Balance 53 1081 200 Weight 116 lb 127 lb Gen: NAD CVS: RRR, No M/R Lungs: CTA, no rales or wheeze Abd: mild fullness in abd, no tenderness Ext: No edema, clubbing or cyanosis CBC, BMP 03/11/17 07:00 03/11/17 07:00 Laboratory Tests 03/11/17 07:00 Calcium 10.2 H Phosphorus 4.2 Albumin 2.8 L Current Medications Aspirin (Asa -) 81 mg PO DAILY [facility] Last Admin: 03/11/17 09:34 Dose: 81 mg Bacitracin (Bacitracin -) 1 applic TP DAILY [facility] Last Admin: 03/10/17 14:12 Dose: 1 applic Calcium Acetate (Phoslo -) 667 mg PO TIDCM [facility] Clopidogrel Bisulfate (Plavix -) 75 mg PO DAILY [facility] Last Admin: 03/11/17 09:34 Dose: 75 mg Heparin Sodium (Porcine) (Heparin -) 5,000 unit SQ BID [facility] Hydralazine HCl (Apresoline -) 25 mg PO TID [facility] Pantoprazole Sodium (Protonix 40mg Ivpb (Pre-Docked)) 100 mls @ 200 mls/hr IVPB DAILY [facility] Last Admin: 03/11/17 09:35 Dose: 200 mls/hr Methylnaltrexone [place] (Relistor -) 4 mg SQ Q2D@1000 [facility] Last Admin: 03/10/17 17:40 Dose: 4 mg Metoclopramide HCl (Reglan -) 5 mg PO TIDAC [facility] Stop: 03/12/17 23:59 Last Admin: 03/11/17 11:44 Dose: 5 mg Metoprolol Tartrate (Lopressor -) 25 mg PO BID [facility] Last Admin: 03/11/17 09:55 Dose: 25 mg Morphine Sulfate (Msir -) 10 mg PO QID PRN PRN Reason: PAIN Ondansetron HCl (Zofran Injection) 4 mg IVPB Q4H PRN PRN Reason: NAUSEA AND/OR VOMITING Senna (Senna -) 2 tab PO HS PRN PRN Reason: CONSTIPATION A/P 72 year old woman with PMhx of ESRD on HD (MWF), DM Type 2, Hypertension, CVA, PVD s/p recent TMA, Hx of partial Colectomy who presented with complaints of constipation. #ESRD on HD s/p dialysis yesterday pt is off schedule, but will plan to resume dialysis on Thursday check BMP in am tomorrow #Fecal Impaction/Constipation on bowel regimen as per GI please avoid phosphate based enemas given pt has advanced renal failure #CKD related Anemia Continue Epogen with HD Trend H/H #Renal Osteodystrophy phos levels are within normal limits will trend with HD Chris Nolasco DO
[2017-03-11] MEDS: CALCIUM ACETATE 667 MG CAPSULE (FP) PO SCH ×2 (12:34→18:05)
[2017-03-11] MEDS: hydrALAZINE HCL 25 MG TABLET (FP) PO SCH ×2 (13:56→21:32)
[2017-03-11] MEDS: BACITRACIN 30 GM TUBE TOPICAL OINTMENT TP SCH (14:01)
--- NOTE | 2017-03-11 16:21 | CON.CARD ---
Consult Consult Specialty:: cardiology Referred by:: mela Reason for Consultation:: abnormal ekg - History of Present Illness Chief Complaint: Constipation History of Present Illness: The patient is a 72-year-old woman with a pmhx of htn, CVA, ESRD on HD MWF, h/o colitis s/p colon surgery in the past, and PVD with recent left foot amputation secondary to toe necrosis on at [facility] who was sent from half-way for constipation. Patient denies any cardiac history. Denies any chest pain, dyspnea, or palptiations. No edema. No pnd or orthopnea. No syncope or near syncope. Denies any f/c/s. No cough. - History Source History Provided By: Patient, Medical Record - Past Medical History Cardio/Vascular: Yes: HTN, Other (PAD) Renal/: Yes: Hemodialysis - Past Surgical History Past Surgical History: Yes: AV Fistula/Graft - Alcohol/Substance Use Hx Alcohol Use: No - Smoking History Smoking history: Never smoked Have you smoked in the past 12 months: No Home Medications - Allergies Allergies/Adverse Reactions: Allergies Allergy/AdvReac Type Severity Reaction Status Date / Time oxycodone Allergy Intermediate Verified 03/10/17 07:15 - Home Medications Home Medications: Ambulatory Orders Aa/Hydrolyzed Collagen, Whey [Lps Neutral Flavor Liquid] 960 ml PO DAILY Acetaminophen 325 mg PO QID 03/09/17 Amlodipine Besylate [Norvasc -] 10 mg PO DAILY 03/09/17 Aspirin [ASA -] 81 mg PO DAILY 03/09/17 B Complex W-C No.20/Folic Acid [Triphrocaps Softgel] 1 mg PO DAILY 03/09/17 Calcium Acetate [Phoslo -] 667 mg PO TIDCM 03/09/17 Clopidogrel Bisulfate [Clopidogrel] 75 mg PO DAILY 03/09/17 Docusate Sodium [Colace -] 100 mg PO DAILY 03/09/17 Hydralazine HCl [Apresoline -] 25 mg PO TID 03/09/17 Lisinopril [Zestril] 40 mg PO DAILY 03/09/17 Morphine Sulfate 15 mg PO QID 03/09/17 Sennosides [Senna] 8.6 mg PO DAILY 03/09/17 Vital Signs: Vital Signs Temperature 98.5 F 03/11/17 14:00 Pulse Rate 65 03/11/17 14:00 Respiratory Rate 19 03/11/17 14:00 Blood Pressure 139/60 03/11/17 14:00 O2 Sat by Pulse Oximetry (%) 94 L 03/11/17 09:00 Constitutional: Yes: No Distress Neck: Yes: Supple Respiratory: Yes: CTA Bilaterally Gastrointestinal: Yes: Normal Bowel Sounds, Soft Cardiovascular: Yes: Regular Rate and Rhythm Heart Sounds: Yes: S1, S2 Murmur: Yes: Systolic Murmur, Grade 2, Grade 3 (HSM upper sternal border) Edema: No - Other Data Labs, Other Data: CBC, BMP 03/11/17 07:00 03/11/17 07:00 Troponin, BNP 03/11/17 03/11/17 07:00 07:00 Troponin I < 0.02 Cancelled Troponin, BNP 03/11/17 03/11/17 07:00 07:00 Troponin I < 0.02 Cancelled Imaging - Results Chest X-ray: Report Reviewed EKG: Image Reviewed Problem List - Problems (1) HTN (hypertension) Code(s): I10 - ESSENTIAL (PRIMARY) HYPERTENSION Assessment/Plan The patient is a 72-year-old woman with a pmhx of htn, CVA, ESRD on HD MWF, h/o colitis s/p colon surgery in the past, and PVD with recent left foot amputation secondary to toe necrosis on at [facility] who was sent from half-way for constipation. Patient denies any cardiac history. Denies any chest pain, dyspnea, or palptiations. No edema. No pnd or orthopnea. No syncope or near syncope. Denies any f/c/s. No cough. No abdominal pain. 1) Cardiac Patient denies any cardiac history and no cardiac symptoms. EKG: sinus rhythm at 60bpm, lae, LVH, with no acute ST changes. No chest pain or epigastric pain. No sob. -Continue aspirin/plavix for PAD unless bleeding or going for a procedure. If patient has PAD or CVA than should be on statin if no contraindication. -Echocardiogram demonstrate mod concentric LVH with question of infiltrative disease appearance, trace to mild MR, mild to mod MS, mild to mod TR, normal RVSP, Normal LVEF. -BP controlled on low dose metoprolol and hydralazine. If bp elevates has room to increase hydralazine and also on amlodipine as outpatient which could be restarted. No further cardiac work up at this time. Please call with any further questions.
[2017-03-11] MEDS ORDERED: morphine SULFATE 10 MG/5 ML UNIT-DOSE CUP PO PRN ×2 (16:53→16:59)
[2017-03-11] MEDS: HEPARIN NA (PORCINE) 5,000 UNITS/ML 1ML VIAL SQ SCH (21:33)
[2017-03-11] MEDS: SENNOSIDES 8.6MG TABLET (FP) PO PRN (21:33)
[2017-03-12 06:06] LABS: HEP B SURFACE AB Reactive (.)
[2017-03-12] MEDS: METOCLOPRAMIDE HCL 10 MG TABLET (FP) PO SCH ×3 (06:33→17:25)
[2017-03-12] MEDS: hydrALAZINE HCL 25 MG TABLET (FP) PO SCH ×3 (06:33→21:20)
[2017-03-12 07:46] LABS: CALCIUM 10.2 mg/dL (8.5-10.1); COCKROFT - GAULT 6.6045
[2017-03-12] MEDS: CALCIUM ACETATE 667 MG CAPSULE (FP) PO SCH ×2 (08:28→15:03)
[2017-03-12] MEDS: ASPIRIN 81 MG CHEWABLE TABLETS PO SCH (10:10)
[2017-03-12] MEDS: METOPROLOL TARTRATE 25 MG TABLET (FP) PO SCH ×2 (10:10→21:20)
[2017-03-12] MEDS: CLOPIDOGREL BISULFATE 75 MG TABLET (FP) PO SCH (10:11)
[2017-03-12] MEDS: HEPARIN NA (PORCINE) 5,000 UNITS/ML 1ML VIAL SQ SCH ×2 (10:11→10:25)
[2017-03-12] MEDS: PANTOPRAZOLE SODIUM 100 ML IVPB SCH (10:12)
--- NOTE | 2017-03-12 10:36 | EKG ---
Test Reason : Blood Pressure : / mmHG Vent. Rate : 060 BPM Atrial Rate : 060 BPM P-R Int : 176 ms QRS Dur : 104 ms QT Int : 438 ms P-R-T Axes : 060 013 009 degrees QTc Int : 438 ms NORMAL SINUS RHYTHM POSSIBLE LEFT ATRIAL ENLARGEMENT LEFT VENTRICULAR HYPERTROPHY ABNORMAL ECG WHEN COMPARED WITH ECG OF 09-MAR-2017 14:54, NO SIGNIFICANT CHANGE WAS FOUND Confirmed by MITUL MIRAMONTES, QASIM ([id number]) on 03/12/2017 10:36:01 AM Referred By: CHANELLE SIMMS Confirmed By:QASIM BAUMAN MD
--- NOTE | 2017-03-12 10:47 | PN ---
Progress Note, Physician Chief Complaint: had small BM yesterday on clear to get relistor today - Current Medication List Current Medications: Active Medications Aspirin (Asa -) 81 mg PO DAILY [facility] Last Admin: 03/12/17 10:10 Dose: 81 mg Bacitracin (Bacitracin -) 1 applic TP DAILY [facility] Last Admin: 03/11/17 14:01 Dose: 1 applic Calcium Acetate (Phoslo -) 667 mg PO TIDCM [facility] Last Admin: 03/12/17 08:28 Dose: 667 mg Clopidogrel Bisulfate (Plavix -) 75 mg PO DAILY [facility] Last Admin: 03/12/17 10:11 Dose: 75 mg Heparin Sodium (Porcine) (Heparin -) 5,000 unit SQ BID [facility] Last Admin: 03/12/17 10:25 Dose: Not Given Hydralazine HCl (Apresoline -) 25 mg PO TID [facility] Last Admin: 03/12/17 06:33 Dose: 25 mg Pantoprazole Sodium (Protonix 40mg Ivpb (Pre-Docked)) 100 mls @ 200 mls/hr IVPB DAILY [facility] Last Admin: 03/12/17 10:12 Dose: 200 mls/hr Methylnaltrexone [place] (Relistor -) 4 mg SQ Q2D@1000 [facility] Last Admin: 03/10/17 17:40 Dose: 4 mg Metoclopramide HCl (Reglan -) 5 mg PO TIDAC [facility] Stop: 03/12/17 23:59 Last Admin: 03/12/17 06:33 Dose: 5 mg Metoprolol Tartrate (Lopressor -) 25 mg PO BID [facility] Last Admin: 03/12/17 10:10 Dose: 25 mg Morphine Sulfate (Morphine 10 Mg/5 Ml Liquid) 10 mg PO Q6H PRN PRN Reason: PAIN Last Admin: 03/11/17 17:26 Dose: 10 mg Ondansetron HCl (Zofran Injection) 4 mg IVPB Q4H PRN PRN Reason: NAUSEA AND/OR VOMITING Senna (Senna -) 2 tab PO HS PRN PRN Reason: CONSTIPATION Last Admin: 03/11/17 21:33 Dose: 2 tab - Objective Vital Signs: Vital Signs Temperature 97.7 F 03/12/17 06:00 Pulse Rate 63 03/12/17 06:00 Respiratory Rate 18 03/12/17 06:00 Blood Pressure 143/70 03/12/17 06:00 O2 Sat by Pulse Oximetry (%) 94 L 03/11/17 21:00 Constitutional: Yes: Calm Cardiovascular: Yes: Regular Rate and Rhythm, S1, S2 Respiratory: Yes: CTA Bilaterally Gastrointestinal: Yes: Soft Edema: No Neurological: Yes: Alert, Oriented Labs: CBC, BMP 03/11/17 07:00 03/12/17 06:30 Problem List - Problems (1) Constipation Assessment/Plan: sec to narcotic pain medicaiton and possible slow transit time/ileus relistor clear liquids had small BM Code(s): K59.00 - CONSTIPATION, UNSPECIFIED Qualifiers: Constipation type: other constipation type Qualified Code(s): K59.09 - Other constipation (2) ESRD (end stage renal disease) Assessment/Plan: HD per renal Code(s): N18.6 - END STAGE RENAL DISEASE (3) PAD (peripheral artery disease) Assessment/Plan: s/p left foot transmatatarsal amputation vascular consult/wound care restart asa and plavix start statin low dose (4) Anemia Assessment/Plan: sec to ESRD epogen during HD Code(s): D64.9 - ANEMIA, UNSPECIFIED Qualifiers: Other causes of anemia: other cause, not classified Qualified Code(s): D64.89 - Other specified anemias (5) HTN (hypertension) Assessment/Plan: norvasc 10mg and hydralazine 25mg tid Code(s): I10 - ESSENTIAL (PRIMARY) HYPERTENSION
[2017-03-12] MEDS ORDERED: PT OWN MED DRAWER 7, Y5N ONE (10:57)
--- NOTE | 2017-03-12 11:42 | PN ---
Progress Note (short form) - Note Progress Note: No acute events No pain On clears Passing gas No BM Vital Signs Period Temp Pulse Resp BP Sys/Leyva Pulse Ox Last 24 Hr 97.7 F-98.5 F 63-65 18-20 139-147/60-70 94 Abd soft, NT, ND CBC, BMP 03/11/17 07:00 03/12/17 06:30 Continue diet Bowel regimen Problem List - Problems (1) Constipation Code(s): K59.00 - CONSTIPATION, UNSPECIFIED Qualifiers: Constipation type: other constipation type Qualified Code(s): K59.09 - Other constipation (2) Impaction of colon Code(s): K56.49 - OTHER IMPACTION OF INTESTINE
--- NOTE | 2017-03-12 13:57 | PN ---
Progress Note (short form) - Note Progress Note: Renal Follow up for ESRD on HD Pt seen and examined at the bedside had a loose BM this am no sob, chest pain, abd pain, fever, chills Vital Signs Temperature 97.7 F 03/12/17 06:00 Pulse Rate 63 03/12/17 06:00 Respiratory Rate 18 03/12/17 06:00 Blood Pressure 143/70 03/12/17 06:00 O2 Sat by Pulse Oximetry (%) 94 L 03/11/17 21:00 Intake & Output 03/09/17 03/10/17 03/11/17 03/12/17 23:59 23:59 23:59 23:59 Intake Total 83 1081 640 50 Output Total 30 Balance 53 1081 640 50 Weight 116 lb 127 lb Gen: NAD CVS: RRR, No M/R Lungs: CTA, no rales or wheeze Abd: mild fullness in abd, no tenderness Ext: No edema, clubbing or cyanosis CBC, BMP 03/11/17 07:00 03/12/17 06:30 Laboratory Tests 03/12/17 06:30 Calcium 10.2 H Current Medications Amlodipine Besylate (Norvasc -) 10 mg PO DAILY [facility] Aspirin (Asa -) 81 mg PO DAILY [facility] Last Admin: 03/12/17 10:10 Dose: 81 mg Bacitracin (Bacitracin -) 1 applic TP DAILY [facility] Last Admin: 03/11/17 14:01 Dose: 1 applic Calcium Acetate (Phoslo -) 667 mg PO TIDCM [facility] Last Admin: 03/12/17 08:28 Dose: 667 mg Clopidogrel Bisulfate (Plavix -) 75 mg PO DAILY [facility] Last Admin: 03/12/17 10:11 Dose: 75 mg Hydralazine HCl (Apresoline -) 25 mg PO TID [facility] Last Admin: 03/12/17 06:33 Dose: 25 mg Pantoprazole Sodium (Protonix 40mg Ivpb (Pre-Docked)) 100 mls @ 200 mls/hr IVPB DAILY [facility] Last Admin: 03/12/17 10:12 Dose: 200 mls/hr Methylnaltrexone [place] (Relistor -) 4 mg SQ Q2D@1000 [facility] Last Admin: 03/10/17 17:40 Dose: 4 mg Metoclopramide HCl (Reglan -) 5 mg PO TIDAC [facility] Stop: 03/12/17 23:59 Last Admin: 03/12/17 06:33 Dose: 5 mg Metoprolol Tartrate (Lopressor -) 25 mg PO BID [facility] Last Admin: 03/12/17 10:10 Dose: 25 mg Morphine Sulfate (Morphine 10 Mg/5 Ml Liquid) 10 mg PO Q6H PRN PRN Reason: PAIN Last Admin: 03/11/17 17:26 Dose: 10 mg Ondansetron HCl (Zofran Injection) 4 mg IVPB Q4H PRN PRN Reason: NAUSEA AND/OR VOMITING Senna (Senna -) 2 tab PO HS PRN PRN Reason: CONSTIPATION Last Admin: 03/11/17 21:33 Dose: 2 tab A/P 72 year old woman with PMhx of ESRD on HD (MWF), DM Type 2, Hypertension, CVA, PVD s/p recent TMA, Hx of partial Colectomy who presented with complaints of constipation. #ESRD on HD no acute indication for dialysis today next treatment tomorrow (inpatient or outpatient) #Fecal Impaction/Constipation on bowel regimen as per GI had BM This am #CKD related Anemia Continue Epogen with HD Trend H/H #Renal Osteodystrophy Ca elevated, d/c calcium acetate and start renmagdalenoa Chris Nolasco DO
[2017-03-12] MEDS: Methylnaltrexone Bromide 12 MG/0.6 ML KIT SQ SCH (15:13)
[2017-03-12] MEDS: BACITRACIN 30 GM TUBE TOPICAL OINTMENT TP SCH (15:14)
--- NOTE | 2017-03-12 16:12 | PN ---
Progress Note, Physician Chief Complaint: Had a BM NO chest pain or dyspnea History of Present Illness: The patient is a 72-year-old woman with a pmhx of htn, CVA, ESRD on HD MWF, h/o colitis s/p colon surgery in the past, and PVD with recent left foot amputation secondary to toe necrosis on at [facility] who was sent from senior care for constipation. Patient denies any cardiac history. Denies any chest pain, dyspnea, or palptiations. No edema. No pnd or orthopnea. No syncope or near syncope. Denies any f/c/s. No cough. - Current Medication List Current Medications: Active Medications Amlodipine Besylate (Norvasc -) 10 mg PO DAILY [facility] Aspirin (Asa -) 81 mg PO DAILY [facility] Last Admin: 03/12/17 10:10 Dose: 81 mg Bacitracin (Bacitracin -) 1 applic TP DAILY [facility] Last Admin: 03/12/17 15:14 Dose: 1 applic Clopidogrel Bisulfate (Plavix -) 75 mg PO DAILY [facility] Last Admin: 03/12/17 10:11 Dose: 75 mg Epoetin Ray (Epogen -) 10,000 units IVPUSH ONCE ONE Stop: 03/13/17 09:01 Heparin Sodium (Porcine) (Heparin -) 1,000 unit IVPUSH ONCE ONE Stop: 03/13/17 06:01 Hydralazine HCl (Apresoline -) 25 mg PO TID [facility] Last Admin: 03/12/17 15:10 Dose: 25 mg Pantoprazole Sodium (Protonix 40mg Ivpb (Pre-Docked)) 100 mls @ 200 mls/hr IVPB DAILY [facility] Last Admin: 03/12/17 10:12 Dose: 200 mls/hr Methylnaltrexone [place] (Relistor -) 4 mg SQ Q2D@1000 [facility] Last Admin: 03/12/17 15:13 Dose: 4 mg Metoclopramide HCl (Reglan -) 5 mg PO TIDAC [facility] Stop: 03/12/17 23:59 Last Admin: 03/12/17 12:00 Dose: Not Given Metoprolol Tartrate (Lopressor -) 25 mg PO BID [facility] Last Admin: 03/12/17 10:10 Dose: 25 mg Morphine Sulfate (Morphine 10 Mg/5 Ml Liquid) 10 mg PO Q6H PRN PRN Reason: PAIN Last Admin: 03/11/17 17:26 Dose: 10 mg Ondansetron HCl (Zofran Injection) 4 mg IVPB Q4H PRN PRN Reason: NAUSEA AND/OR VOMITING Senna (Senna -) 2 tab PO HS PRN PRN Reason: CONSTIPATION Last Admin: 03/11/17 21:33 Dose: 2 tab Sevelamer Carbonate (Renvela -) 800 mg PO TIDCM GEOVANI - Objective Vital Signs: Vital Signs Temperature 98.9 F 03/12/17 15:00 Pulse Rate 60 03/12/17 15:00 Respiratory Rate 18 03/12/17 15:00 Blood Pressure 157/55 03/12/17 15:00 O2 Sat by Pulse Oximetry (%) 94 L 03/11/17 21:00 Constitutional: Yes: No Distress Neck: Yes: Supple Cardiovascular: Yes: Regular Rate and Rhythm, Murmur, S1, S2 (3/6 HSM upper sternal border). No: JVD Respiratory: Yes: CTA Bilaterally Edema: No Labs: CBC, BMP 03/11/17 07:00 03/12/17 06:30 Problem List - Problems (1) HTN (hypertension) Code(s): I10 - ESSENTIAL (PRIMARY) HYPERTENSION Assessment/Plan The patient is a 72-year-old woman with a pmhx of htn, CVA, ESRD on HD MWF, h/o colitis s/p colon surgery in the past, and PVD with recent left foot amputation secondary to toe necrosis on at [facility] who was sent from senior care for constipation. Patient denies any cardiac history. Denies any chest pain, dyspnea, or palptiations. No edema. No pnd or orthopnea. No syncope or near syncope. Denies any f/c/s. No cough. No abdominal pain. 1) Cardiac Patient denies any cardiac history and no cardiac symptoms. EKG: sinus rhythm at 60bpm, lae, LVH, with no acute ST changes. No chest pain or epigastric pain. No sob. -Continue aspirin/plavix for PAD unless bleeding or going for a procedure. If patient has PAD or CVA than should be on statin if no contraindication. -Echocardiogram demonstrate mod concentric LVH with question of infiltrative disease appearance, trace to mild MR, mild to mod MS, mild to mod TR, normal RVSP, Normal LVEF. Should follow up with cardiology as outpatient for any further work up or testing for infiltrative disease. 2) HTN -on amlodipine, metoprolol, and hydralazine. Room to increase hydralazine if needed in the future. Please call with any further questions. Will sign off at this time.
[2017-03-12] MEDS: SEVELAMER CARBONATE 800 MG TAB (FP) PO SCH (17:26)
--- NOTE | 2017-03-12 21:00 | PN ---
GI Progress Note Subjective: Patient feeling better today. (+) BM and FUA shows decrease in size of impaction. - Objective Vital Signs: Vital Signs Temperature 98.7 F 03/12/17 18:00 Pulse Rate 60 03/12/17 18:00 Respiratory Rate 18 03/12/17 18:00 Blood Pressure 148/56 03/12/17 18:00 O2 Sat by Pulse Oximetry (%) 92 L 03/12/17 09:00 Constitutional: Well Nourished, Thin HENT: Yes: Normocephalic Cardiovascular: Yes: Regular Rate and Rhythm Respiratory: Yes: CTA Bilaterally Gastrointestinal Inspection: Yes: WNL ...Auscultate: Yes: Normoactive Bowel Sounds ...Palpate: Yes: Soft. No: Tenderness Labs: CBC, BMP 03/11/17 07:00 03/12/17 06:30 - ....Imaging X-ray: Report Reviewed (as above) Assessment/Plan Obstipation resolving. Increase dose of Relistor to better manage narcotic- induced constipation Once discharged, should be on Movantik to prevent recurrent problem.
[2017-03-12] MEDS: SENNOSIDES 8.6MG TABLET (FP) PO PRN (22:13)
[2017-03-13] MEDS ORDERED: HEPARIN NA (PORCINE) 5,000 UNITS/ML 1ML VIAL IVPUSH ONE (06:00)
[2017-03-13] MEDS: hydrALAZINE HCL 25 MG TABLET (FP) PO SCH ×2 (06:20→14:05)
[2017-03-13 07:03] LABS: MCH 27.9 pg (25.7-33.7); MCHC 31.7 g/dl (32.0-36.0); MEAN CELL VOLUME 87.9 fl (80-96); MEAN PLT VOLUME 8.4 fl (7.5-11.1); PLATELET COUNT 255 K/MM3 (134-434); RDW 18.8 % (11.6-15.6); WHITE BLOOD COUNT 8.3 K/mm3 (4.0-10.0)
[2017-03-13 07:33] VITALS: TEMP 98.2
[2017-03-13 07:44] LABS: CALCIUM 9.5 mg/dL (8.5-10.1); PHOSPHOROUS 5.1 mg/dL (2.5-4.9)
[2017-03-13 07:49] LABS: COCKROFT - GAULT 5.1
[2017-03-13 08:14] LABS: CREATININE 8.7 mg/dL (0.55-1.02)
[2017-03-13] MEDS: SEVELAMER CARBONATE 800 MG TAB (FP) PO SCH ×3 (08:53→17:36)
--- NOTE | 2017-03-13 09:42 | DS ---
Physical Examination Vital Signs: Vital Signs Temperature 98.2 F 03/13/17 07:32 Pulse Rate 61 03/13/17 07:32 Respiratory Rate 18 03/13/17 07:32 Blood Pressure 181/71 03/13/17 07:32 O2 Sat by Pulse Oximetry (%) 90 L 03/12/17 21:00 Labs: CBC, BMP 03/13/17 06:20 03/13/17 06:20 Discharge Summary Reason For Visit: END STAGE RENAL DISEASE,IMPACTION OF COLON Current Active Problems Anemia (Acute) Constipation (Acute) ESRD (end stage renal disease) (Acute) HTN (hypertension) (Acute) Impaction of colon (Acute) PAD (peripheral artery disease) (Acute) Hospital Course: PCP: Raymon Hernandez - Admission Chief Complaint: sent in for constipation History of Present Illness: The patient is a 72-year-old woman, accompanied by family, with a significant past medical history of cerebrovascular accident, hypertension and end-stage renal disease (on hemodialysis q. MWF; last dialysis was on Thursday at 15:00PM without complications) who presents to the emergency department with complaints of constipation. . She reports she recently underwent surgery (left foot amputation sec to toe necrosis on 02/24/2017;at [facility] where she also have left foot angiogram and angioplasty and was then sent to [facility] for rehabilitation. There, she expressed her concerns of constipation. She states that she was given an enema and suppository, miralax and stool softners which provided no relief. patient has been on opioid pain medication after the foot surgery She denies fever, chills, diaphoresis, generalized weakness. She denies chest pain, shortness of breath, cough She denies abdominal pain, nausea, vomiting, diarrhea, dysuria, hematuria, urinary frequency and urgency, flank pain. Allergies: Acetaminophen. Oxycodone HCL Past Surgical History: Colectomy. Status post left foot amputation. Social History: Never smoked. No EtOH and recreational drug use. Dental Officer: Dr. Ailyn Cardenas Vascular Surgeon: Dr. Ascencion Cardenas History Source: Patient, Medical Record - Past Medical History Cardiovascular: Yes: HTN, Other (PAD) Renal/: Yes: Hemodialysis - Past Surgical History Past Surgical History: Yes: AV Fistula/Graft got relistor and fleet enema and now constipation resolved HD MWF PAD s/p left foot tma plavix and asa seen by wound team Condition: Improved - Instructions Referrals: Raymon Hernandez MD [Primary Care Provider] - Disposition: INTERMEDIATE FACILITY - Home Medications Comprehensive Discharge Medication List: Ambulatory Orders Aa/Hydrolyzed Collagen, Whey [Lps Neutral Flavor Liquid] 960 ml PO DAILY Acetaminophen 325 mg PO QID 03/09/17 Amlodipine Besylate [Norvasc -] 10 mg PO DAILY 03/09/17 Aspirin [ASA -] 81 mg PO DAILY 03/09/17 B Complex W-C No.20/Folic Acid [Triphrocaps Softgel] 1 mg PO DAILY 03/09/17 Calcium Acetate [Phoslo -] 667 mg PO TIDCM 03/09/17 Clopidogrel Bisulfate [Clopidogrel] 75 mg PO DAILY 03/09/17 Docusate Sodium [Colace -] 100 mg PO DAILY 03/09/17 Hydralazine HCl [Apresoline -] 25 mg PO TID 03/09/17 Lisinopril [Zestril] 40 mg PO DAILY 03/09/17 Morphine Sulfate 15 mg PO QID 03/09/17 Sennosides [Senna] 8.6 mg PO DAILY 03/09/17
[2017-03-13] MEDS ORDERED: Methylnaltrexone Bromide 12 MG/0.6 ML KIT SQ SCH (10:00)
[2017-03-13] MEDS ORDERED: amLODIPine BESYLATE 10 MG TABLET (FP) PO SCH (10:00)
--- NOTE | 2017-03-13 10:28 | PN ---
Progress Note (short form) - Note Progress Note: No acute events No abdominal pain +BM Tolerating diet Vital Signs Period Temp Pulse Resp BP Sys/Leyva Pulse Ox Last 24 Hr 98.2 F-98.9 F 60-66 18-18 148-181/55-71 90 Abd soft, NT, ND AXR- improved fecal impaction, no obstruction Diet as tolerated No surgical intervention needed at this time Thank you Problem List - Problems (1) Constipation Code(s): K59.00 - CONSTIPATION, UNSPECIFIED Qualifiers: Constipation type: other constipation type Qualified Code(s): K59.09 - Other constipation (2) Impaction of colon Code(s): K56.49 - OTHER IMPACTION OF INTESTINE
[2017-03-13] MEDS: CLOPIDOGREL BISULFATE 75 MG TABLET (FP) PO SCH (12:14)
[2017-03-13] MEDS: ASPIRIN 81 MG CHEWABLE TABLETS PO SCH (12:14)
[2017-03-13] MEDS: METOPROLOL TARTRATE 25 MG TABLET (FP) PO SCH (12:15)
[2017-03-13] MEDS ORDERED: EPOETIN ALFA 10,000 UNIT/1 ML VIAL IVPUSH ONE (12:30)
[2017-03-13] MEDS ORDERED: EPOETIN ALFA 2,000 UNITS/1 ML VIAL IVPUSH ONE (12:30)
--- NOTE | 2017-03-13 13:11 | PN ---
Progress Note (short form) - Note Progress Note: Renal Follow up for ESRD on HD Pt seen and examined at the bedside has zahra BM's yesterday feels better denies any abd pain, sob, chest pain for dialysis today Vital Signs Temperature 98.2 F 03/13/17 07:32 Pulse Rate 61 03/13/17 07:32 Respiratory Rate 18 03/13/17 07:32 Blood Pressure 181/71 03/13/17 07:32 O2 Sat by Pulse Oximetry (%) 90 L 03/12/17 21:00 Intake & Output 03/10/17 03/11/17 03/12/17 03/13/17 23:59 23:59 23:59 23:59 Intake Total 1081 640 270 60 Output Total 0 0 Balance 1081 640 270 60 Weight 127 lb 122 lb 9.6 oz Gen: NAD CVS: RRR, No M/R Lungs: CTA, no rales or wheeze Abd: mild fullness in abd, no tenderness Ext: No edema, clubbing or cyanosis CBC, BMP 03/13/17 06:20 03/13/17 06:20 Current Medications Amlodipine Besylate (Norvasc -) 10 mg PO DAILY [facility] Last Admin: 03/13/17 12:15 Dose: Not Given Aspirin (Asa -) 81 mg PO DAILY [facility] Last Admin: 03/13/17 12:14 Dose: 81 mg Bacitracin (Bacitracin -) 1 applic TP DAILY [facility] Last Admin: 03/12/17 15:14 Dose: 1 applic Clopidogrel Bisulfate (Plavix -) 75 mg PO DAILY [facility] Last Admin: 03/13/17 12:14 Dose: 75 mg Hydralazine HCl (Apresoline -) 25 mg PO TID [facility] Last Admin: 03/13/17 06:20 Dose: 25 mg Pantoprazole Sodium (Protonix 40mg Ivpb (Pre-Docked)) 100 mls @ 200 mls/hr IVPB DAILY [facility] Last Admin: 03/12/17 10:12 Dose: 200 mls/hr Methylnaltrexone [place] (Relistor -) 8 mg SQ Q2D@1000 [facility] Metoprolol Tartrate (Lopressor -) 25 mg PO BID [facility] Last Admin: 03/13/17 12:15 Dose: Not Given Morphine Sulfate (Morphine 10 Mg/5 Ml Liquid) 10 mg PO Q6H PRN PRN Reason: PAIN Last Admin: 03/11/17 17:26 Dose: 10 mg Ondansetron HCl (Zofran Injection) 4 mg IVPB Q4H PRN PRN Reason: NAUSEA AND/OR VOMITING Senna (Senna -) 2 tab PO HS PRN PRN Reason: CONSTIPATION Last Admin: 03/12/17 22:13 Dose: 2 tab Sevelamer Carbonate (Renvela -) 800 mg PO TIDCM [facility] Last Admin: 03/13/17 12:14 Dose: 800 mg A/P 72 year old woman with PMhx of ESRD on HD (MWF), DM Type 2, Hypertension, CVA, PVD s/p recent TMA, Hx of partial Colectomy who presented with complaints of constipation. #ESRD on HD dialysis today with UF as tolerated Dose all meds for intermittent HD #Fecal Impaction/Constipation moving bowels well avoid fleet enemas #CKD related Anemia Continue Epogen with HD Trend H/H #Renal Osteodystrophy continue Renvela with meals Chris Nolasco DO
[2017-03-13] MEDS: PANTOPRAZOLE SODIUM 100 ML IVPB SCH (14:03)
[2017-03-13] MEDS ORDERED: PANTOPRAZOLE 40 MG TABLET (FP) PO SCH (14:15)
[2017-03-13] MEDS: BACITRACIN 30 GM TUBE TOPICAL OINTMENT TP SCH (17:37)
[2017-03-13 18:27] VITALS: BP 180/70; PULSE 76
== END 2017-03-13 18:37 | DRG 391 ==
LOC: JER 14:06 → JERBED 21:08 → J5S 22:49
PROVIDERS: ADMIT Family Medicine; ATTEND Family Medicine
PROC: 5A1D60Z (ICD-10-PCS; principal; 2017-03-10)
DX: K59.03 Drug induced constipation (principal); N18.6 End stage renal disease; I12.0 Hypertensive chronic kidney disease with stage 5 chronic kidney disease or end stage renal disease; T40.2X5A Adverse effect of other opioids, initial encounter; Z99.2 Dependence on renal dialysis; Z89.432 Acquired absence of left foot; I73.9 Peripheral vascular disease, unspecified; D63.1 Anemia in chronic kidney disease; Z86.73 Personal history of transient ischemic attack (TIA), and cerebral infarction without residual deficits; N25.0 Renal osteodystrophy
CPT/HCPCS: 36415; 74000-TC; 74020-TC; 80048; 80053; 80061; 81003; 81015; 82550; 82565; 83036; 83605; 83690; 83721; 83735; 84100; 84443; 84484; 84520; 85025; 85027; 86704; 86706; 86708; 86803; 87340; 93005; 93010; 93306-TC; 99285-25; J0885; J1644

== ENCOUNTER 2017-07-22 16:20 | Observation (INO) | payer OTHER, MEDICARE ==
--- NOTE | 2017-07-22 16:55 | PDOC ---
History of Present Illness - History of Present Illness Initial Comments: 07/22/17 17:29 The patient is a 72-year-old woman, accompanied by family, with a significant past medical history of cerebrovascular accident, hypertension and end-stage renal disease (on hemodialysis q. MWF; last dialysis was Thursday), who presents from her dialysis appointment for evaluation of high blood pressure today. The patient states she was unable to receive her dialysis today. The patient reports feeling nauseous and lightheaded this morning before her dialysis appointment. She reports being taken off of her amlodipine regimen about two months ago, however, was supposed to restart taking the amlodipine last week. She denies starting the amlodipine because her family states we forgot to pick it up until today. She denies fever, chills, diaphoresis, generalized weakness. She denies chest pain, shortness of breath, cough. She denies abdominal pain, vomiting, diarrhea, dysuria, hematuria, urinary frequency and urgency, flank pain. Allergies: Acetaminophen. Oxycodone HCL Past Surgical History: Colectomy. Status post left foot amputation (currently taking ceftazidime daily for ~3 weeks) Social History: Never smoked. No EtOH and recreational drug use. Animal Breeder: Dr. Lindy Muhammad Vascular Surgeon: Dr. Rangel PCP: Dr. Savannah Navarro <Miriam Funez - Last Filed: 07/23/17 00:24> <Cresencio Maki - Last Filed: 07/23/17 00:55> - General Chief Complaint: Lightheaded Stated Complaint: WEAKNESS Time Seen by Provider: 07/22/17 16:55 Past History <Miriam Funez - Last Filed: 07/23/17 00:24> - Past Medical History CVA: Yes Diabetes: Yes Dialysis: Yes (M-W-F) Disorders: Yes (DIALYSIS-M/W/FR) HTN: Yes - Surgical History Abdominal Surgery: Yes (COLECTOMY) - Immunization History Immunization Up to Date: Yes - Suicide/Smoking/Psychosocial Hx Smoking History: Never smoked Have you smoked in the past 12 months: No If you are a former smoker, when did you quit?: 35YRS Information on smoking cessation initiated: No Hx Alcohol Use: No Drug/Substance Use Hx: No Substance Use Type: None <Cresencio Maki - Last Filed: 07/23/17 00:55> - Past Medical History Allergies/Adverse Reactions: Allergies Allergy/AdvReac Type Severity Reaction Status Date / Time oxycodone Allergy Intermediate Verified 07/22/17 16:41 acetaminophen [From Percocet] Allergy Verified 07/22/17 16:41 cinacalcet HCl Allergy Verified 07/22/17 16:41 [From Sensipar] oxycodone HCl [From Percocet] Allergy Verified 07/22/17 16:41 Home Medications: Ambulatory Orders Acetaminophen 325 mg PO QID 03/09/17 Amlodipine Besylate [Norvasc -] 10 mg PO DAILY 03/09/17 Aspirin [ASA -] 81 mg PO DAILY 03/09/17 Calcium Acetate [Phoslo -] 667 mg PO TIDCM 03/09/17 Clopidogrel Bisulfate [Clopidogrel] 75 mg PO DAILY 03/09/17 Docusate Sodium [Colace -] 100 mg PO DAILY 03/09/17 Hydralazine HCl [Apresoline -] 25 mg PO TID 03/09/17 Metoprolol Tartrate [Lopressor -] 25 mg PO BID #20 tablet 03/13/17 Sevelamer Carbonate [Renvela -] 800 mg PO TIDCM tab 03/13/17 Review of Systems - Review of Systems Able to Perform ROS?: Yes Comments:: 07/22/17 17:30 GENERAL/CONSTITUTIONAL: No fever or chills. No weakness. HEAD, EYES, EARS, NOSE AND THROAT: No change in vision. No ear pain or discharge. No sore throat. CARDIOVASCULAR: No chest pain or shortness of breath. RESPIRATORY: No cough, wheezing, or hemoptysis. GASTROINTESTINAL: (+) nausea, No vomiting, diarrhea or constipation. GENITOURINARY: No dysuria, frequency, or change in urination. MUSCULOSKELETAL: No joint or muscle swelling or pain. No neck or back pain. SKIN: No rash NEUROLOGIC: No headache, vertigo, loss of consciousness, or change in strength/ sensation. ENDOCRINE: No increased thirst. No abnormal weight change. HEMATOLOGIC/LYMPHATIC: No anemia, easy bleeding, or history of blood clots. ALLERGIC/IMMUNOLOGIC: No hives or skin allergy. <Miriam Funez - Last Filed: 07/23/17 00:24> *Physical Exam - Vital Signs Last Vital Signs Temp Pulse Resp BP Pulse Ox 97.4 F L 68 17 230/85 100 07/22/17 16:41 07/22/17 16:41 07/22/17 16:41 07/22/17 16:41 07/22/17 16:41 - Physical Exam Comments: 07/22/17 17:32 GENERAL: Awake, alert, and fully oriented, in no acute distress HEAD: No signs of trauma EYES: PERRLA, EOMI, sclera anicteric, conjunctiva clear ENT: Auricles normal inspection, hearing grossly normal, nares patent, oropharynx clear without exudates. Moist mucosa NECK: Normal ROM, supple, no lymphadenopathy, JVD, or masses LUNGS: Breath sounds equal, clear to auscultation bilaterally. No wheezes, and no crackles HEART: (+) 2/6 systolic ejection murmur. Regular rate and rhythm, normal S1 and S2, no rubs or gallops ABDOMEN: Soft, nontender, normoactive bowel sounds. No guarding, no rebound. No masses EXTREMITIES: (+) bloody, purulent drainage from left foot wound drain. Left foot is bandaged. There is a left upper extremity shunt with no palpable thrill. Remainder of extremities have normal range of motion, no edema. No clubbing or cyanosis. No cords, erythema, or tenderness NEUROLOGICAL: Cranial nerves II through XII grossly intact. Normal speech, normal gait SKIN: Warm, Dry, normal turgor, no rashes or lesions noted. <Miriam Funez - Last Filed: 07/23/17 00:24> - Vital Signs Last Vital Signs Temp Pulse Resp BP Pulse Ox 97.4 F L 68 17 230/85 100 07/22/17 16:41 07/22/17 16:41 07/22/17 16:41 07/22/17 16:41 07/22/17 16:41 <Cresencio Maki - Last Filed: 07/23/17 00:55> Heart Score/ECG Review - ECG Intrepretation Comment:: 07/22/17 20:36 ECG was read by Dr. Maki at 18:38 Impression: Normal sinus rhythm. Possible left atrial enlargement Vent.Rate: 71 bpm IN Interval: 168 ms QTc: 475 ms <Miriam Funez - Last Filed: 07/23/17 00:24> ED Treatment Course - LABORATORY CBC & Chemistry Diagram: 07/22/17 18:00 07/22/17 19:15 <Miriam Funez - Last Filed: 07/23/17 00:24> - LABORATORY CBC & Chemistry Diagram: 07/22/17 18:00 07/22/17 19:15 <Cresencio Maki - Last Filed: 07/23/17 00:55> Medical Decision Making - Medical Decision Making 07/23/17 00:24 Dr. Lindy Marr, vacuum kettle cook, was paged via phone answering service at this time requesting a call back <Miriam Funez - Last Filed: 07/23/17 00:24> *DC/Admit/Observation/Transfer - Attestations Scribe Attestion: 07/22/17 17:34 Documentation prepared by Miriam Funez, acting as medical tech for Cresencio Maki DO <Miriam Funez - Last Filed: 07/23/17 00:24> - Discharge Dispostion Admit: Yes - Attestations Physician Attestion: 07/22/17 16:55 I, Dr. Cresencio Maki, attest that this document has been prepared under my direction and personally reviewed by me in its entirety. I further attest, that it accurately reflects all work, treatment, procedures and medical decision -making performed by me. <Cresencio Maki - Last Filed: 07/23/17 00:55> Diagnosis at time of Disposition: Uncontrolled hypertension, ESRD (end stage renal disease), PAD (peripheral artery disease) Hypervolemia Qualifiers: Hypervolemia type: other Qualified Code(s): E87.79 - Other fluid overload; E87.79 - Other fluid overload HTN (hypertension) Qualifiers: Hypertension type: essential hypertension Qualified Code(s): I10 - Essential ( primary) hypertension; I10 - Essential (primary) hypertension; I10 - Essential ( primary) hypertension - Discharge Dispostion Condition at time of disposition: Improved
[2017-07-22] MEDS: hydrALAZINE HCL 20 MG/ML VIAL IVPUSH ONE ×2 (17:18→17:42)
[2017-07-22] MEDS ORDERED: ONDANSETRON 4 MG/2 ML VIAL IVPUSH ONE (17:19)
[2017-07-22] MEDS ORDERED: ONDANSETRON 4 MG/2 ML VIAL ONE (17:41)
[2017-07-22] MEDS ORDERED: hydrALAZINE HCL 20 MG/ML VIAL ONE (17:41)
[2017-07-22 18:19] LABS: BASOPHIL 0.9 % (0-2.0); EOSINOPHIL 2.8 % (0-4.5); MCH 29.5 pg (25.7-33.7); MCHC 31.5 g/dl (32.0-36.0); MEAN CELL VOLUME 93.6 fl (80-96); MEAN PLT VOLUME 9.5 fl (7.5-11.1); NEUTROPHILS 57.8 % (42.8-82.8); PLATELET COUNT 166 K/MM3 (134-434); RDW 20.3 % (11.6-15.6); WHITE BLOOD COUNT 5.8 K/mm3 (4.0-10.0)
[2017-07-22 19:38] LABS: INR 1.01 (0.82-1.09); PROTHROMBIN TIME (PATIENT) 11.4 SEC (9.98-11.88)
[2017-07-22] MEDS ORDERED: cefTAZidime PENTAHYDRATE 1 GM/50ML PRE-DOCKED (RESTRICTED TO ID) IVPB ONE (19:54)
[2017-07-22 19:55] LABS: ALBUMIN 3.1 g/dl (3.4-5.0); ANION GAP 12 (8-16); BILIRUBIN,TOTAL 0.3 mg/dL (0.2-1.0); CALCIUM 8.8 mg/dL (8.5-10.1); CO2 22 mmol/L (21-32); GLUCOSE,RANDOM 102 mg/dL (74-106); SGOT/AST 7 U/L (15-37); SGPT/ALT 9 U/L (12-78); TOT PROT 7.4 g/dl (6.4-8.2)
[2017-07-22 20:01] LABS: ALK PHOS 152 U/L (45-117)
[2017-07-22 20:26] LABS: CREATININE 8.1 mg/dL (0.55-1.02)
--- NOTE | 2017-07-23 00:57 | HP ---
CHIEF COMPLAINT: Elevated Blood Pressure PCP: Dr. Savannah Navarro ([facility]) HISTORY OF PRESENT ILLNESS: This is a 72 y/o woman with a past medical history of: ESRD (HD- MWF), HTN, HLD , DVT (L- Arm, 03/20). Who was sent to the ED from her Dialysis Center for Uncontrolled BP. Patient reports not being dialyzed due to her BP being high. Patient reports having a slight dull PASCUAL. Patient reports taking her medication daily, and was recently started on Amlodipine which she has not filled. Patient denies fever, chills, cough, SOB, dizziness, CP, AP, V/D, constipation. ER course was notable for: (1) BP on arrival 230/85~ 164/43, post Hydralazine (2) BUN 61, Cr 8.1 (3) BNP > 22114 (4) Chest Xray image- fluid overload Recent Travel: None PAST MEDICAL HISTORY: See HPI PAST SURGICAL HISTORY: AV-Fistula L Arm Colectomy Left metatarsal amputation Social History: Smoking: Never Alcohol: None Drugs: None Family History: Non- Contributory Allergies oxycodone Allergy (Intermediate, Verified 07/22/17 16:41) acetaminophen [From Percocet] Allergy (Verified 07/22/17 16:41) cinacalcet HCl [From Sensipar] Allergy (Verified 07/22/17 16:41) oxycodone HCl [From Percocet] Allergy (Verified 07/22/17 16:41) HOME MEDICATIONS: Home Medications Medication Instructions Recorded Acetaminophen 325 mg PO QID 03/09/17 Amlodipine Besylate [Norvasc -] 10 mg PO DAILY 03/09/17 Aspirin [ASA -] 81 mg PO DAILY 03/09/17 Calcium Acetate [Phoslo -] 667 mg PO TIDCM 03/09/17 Clopidogrel Bisulfate [Clopidogrel] 75 mg PO DAILY 03/09/17 Docusate Sodium [Colace -] 100 mg PO DAILY 03/09/17 Hydralazine HCl [Apresoline -] 25 mg PO TID 03/09/17 Metoprolol Tartrate [Lopressor -] 25 mg PO BID #20 tablet 03/13/17 Sevelamer Carbonate [Renvela -] 800 mg PO TIDCM tab 03/13/17 REVIEW OF SYSTEMS CONSTITUTIONAL: Absent: fever, chills, diaphoresis, generalized weakness, malaise, loss of appetite, weight change HEENT: Absent: rhinorrhea, nasal congestion, throat pain, throat swelling, difficulty swallowing, mouth swelling, ear pain, eye pain, visual changes CARDIOVASCULAR: Absent: chest pain, syncope, palpitations, irregular heart rate, lightheadedness , peripheral edema RESPIRATORY: Absent: cough, shortness of breath, dyspnea with exertion, orthopnea, wheezing, stridor, hemoptysis GASTROINTESTINAL: nausea Absent: abdominal pain, abdominal distension, vomiting, diarrhea, constipation, melena, hematochezia GENITOURINARY: Absent: dysuria, frequency, urgency, hesitancy, hematuria, flank pain, genital pain MUSCULOSKELETAL: Absent: myalgia, arthralgia, joint swelling, back pain, neck pain SKIN: Absent: rash, itching, pallor HEMATOLOGIC/IMMUNOLOGIC: Absent: easy bleeding, easy bruising, lymphadenopathy, frequent infections ENDOCRINE: Absent: unexplained weight gain, unexplained weight loss, heat intolerance, cold intolerance NEUROLOGIC: headache Absent: focal weakness or paresthesias, dizziness, unsteady gait, seizure, mental status changes, bladder or bowel incontinence PSYCHIATRIC: Absent: anxiety, depression, suicidal or homicidal ideation, hallucinations. PHYSICAL EXAMINATION Vital Signs - 24 hr 07/22/17 07/22/17 07/22/17 16:41 17:50 18:27 Temperature 97.4 F L 98.2 F Pulse Rate 68 Pulse Rate [ 65 69 Right Radial] Respiratory 17 18 18 Rate Blood Pressure 230/85 Blood Pressure 207/74 183/70 [Right Arm] O2 Sat by Pulse 100 95 Oximetry (%) 07/22/17 07/22/17 19:32 22:42 Temperature 97.6 F Pulse Rate Pulse Rate [ Right Radial] Respiratory 18 Rate Blood Pressure Blood Pressure 170/55 164/63 [Right Arm] O2 Sat by Pulse 100 Oximetry (%) GENERAL: Awake, alert, and fully oriented, in no acute distress. HEAD: Normal with no signs of trauma. EYES: Pupils equal, round and reactive to light, extraocular movements intact, sclera anicteric, conjunctiva clear. No lid lag. EARS, NOSE, THROAT: Ears normal, nares patent, oropharynx clear without exudates. Moist mucous membranes. NECK: Normal range of motion, supple without lymphadenopathy, JVD, or masses. LUNGS: No wheezes, and no crackles. No accessory muscle use. Diminished breath sounds bilaterally HEART: Regular rate and rhythm, normal S1 and S2, No rub or gallop.Grade 2 systolic murmur ABDOMEN: Soft, nontender, not distended, normoactive bowel sounds, no guarding, no rebound, no masses. No hepatomegaly or splenomegaly. MUSCULOSKELETAL: Normal range of motion at all joints. No bony deformities or tenderness. No CVA tenderness. UPPER EXTREMITIES: 2+ pulses, warm, well-perfused. No cyanosis. No clubbing. No peripheral edema. +Thrill/Bruit to Left AV Fistula LOWER EXTREMITIES: 2+ pulses, warm, well-perfused. No calf tenderness. No peripheral edema. + left NEUROLOGICAL: Cranial nerves II-XII intact. Normal speech. Gait not observed PSYCHIATRIC: Cooperative. Good eye contact. Appropriate mood and affect. SKIN: Warm, dry, normal turgor, no rashes noted, normal capillary refill. Serous bloody drainage from left wound drain, left foot is bandaged Laboratory Results - last 24 hr 07/22/17 07/22/17 07/22/17 18:00 18:00 18:00 WBC 5.8 D RBC 3.82 D Hgb 11.3 D Hct 35.7 D MCV 93.6 MCH 29.5 MCHC 31.5 L RDW 20.3 H Plt Count 166 D MPV 9.5 D Neutrophils % 57.8 D Lymphocytes % 30.6 D Monocytes % 7.9 Eosinophils % 2.8 D Basophils % 0.9 PT with INR Cancelled INR Cancelled Sodium Cancelled Potassium Cancelled Chloride Cancelled Carbon Dioxide Cancelled Anion Gap Cancelled BUN Cancelled Creatinine Cancelled Creat Clearance w eGFR Cancelled Random Glucose Cancelled Calcium Cancelled Total Bilirubin Cancelled AST Cancelled ALT Cancelled Alkaline Phosphatase Cancelled B-Natriuretic Peptide Cancelled Total Protein Cancelled Albumin Cancelled 07/22/17 07/22/17 07/22/17 19:09 19:15 19:15 WBC RBC Hgb Hct MCV MCH MCHC RDW Plt Count MPV Neutrophils % Lymphocytes % Monocytes % Eosinophils % Basophils % PT with INR 11.40 INR 1.01 Sodium 140 Potassium 5.1 D Chloride 106 D Carbon Dioxide 22 D Anion Gap 12 BUN 69 H D Creatinine 8.1 H* Creat Clearance w eGFR 4.88 Random Glucose 102 D Calcium 8.8 Total Bilirubin 0.3 D AST 7 L D ALT 9 L D Alkaline Phosphatase 152 H D B-Natriuretic Peptide 75750.31 H Total Protein 7.4 Albumin 3.1 L ASSESSMENT/PLAN: This is a 72 y/o woman with a PMHx of ESRD (HD, MWF), HTN, HLD, DVT L- arm. Placed in Tele Observation for Hypertension Emergency, CKD for further evaluation of their emergent condition. Plan: 1. Hypertension Emergency - Likely secondary too non-compliance vs Fluid Overload - Patient missed her Amlodipine x 1 week. - Tele monitoring - Given Hydralazine in ED, BP improved - Continue home meds with parameters - Will need to be Dialyzed tomorrow 2. ESRD - HD- MWF - Last HD was 2 days ago - Appreciate Nephrology Consult for HD Management - Will have Vascular Specialist check for AV Fistula patency, a report earlier by ED attending no Thrill appreciated - ON exam +Thrill/Bruit, extremity warm, skin tone- wnl 3. Nausea - Likely due to Hypertension - Zofran prn 4. HLD - Continue home med 5. CVA - No residuals - Continue home meds 6. FEN - Fluid Restriction - Replete lytes prn - Renal, Low Na Diet 7. DVT Prophylaxis - OOB - SCD- R- Leg, KENZIE L- leg Code Status: Full Code Visit type - Emergency Visit Emergency Visit: Yes ED Registration Date: 07/22/17 Care time: The patient presented to the Emergency Department on the above date and was hospitalized for further evaluation of their emergent condition. - New Patient This patient is new to me today: Yes Date on this admission: 07/23/17 - Critical Care Critical Care patient: No
[2017-07-23] MEDS ORDERED: ACETAMINOPHEN 325 MG TABLET (FP) ONE (11:22)
[2017-07-23] MEDS ORDERED: amLODIPine BESYLATE 5 MG TABLET (FP) ONE (11:22)
[2017-07-23] MEDS: ASPIRIN 81 MG CHEWABLE TABLETS PO SCH (11:24)
[2017-07-23] MEDS: CLOPIDOGREL BISULFATE 75 MG TABLET (FP) PO SCH (11:24)
[2017-07-23] MEDS: METOPROLOL TARTRATE 25 MG TABLET (FP) PO SCH ×2 (11:24→21:51)
[2017-07-23] MEDS: amLODIPine BESYLATE 10 MG TABLET (FP) PO SCH (11:24)
[2017-07-23] MEDS: DOCUSATE SODIUM 100 MG CAPSULE (FP) PO SCH (11:24)
--- NOTE | 2017-07-23 11:27 | CONSULT ---
Consult - History of Present Illness History of Present Illness: 72 year old woman with ESRD on HD with left arm fistula. She has been having problems with flow and was not able to be dialyzed yesterday. - History Source History Provided By: Patient Limitations to Obtaining History: No Limitations - Past Medical History Cardio/Vascular: Yes: HTN, Other (PAD) Renal/: Yes: Renal Failure, Hemodialysis - Past Surgical History Past Surgical History: Yes: AV Fistula/Graft - Alcohol/Substance Use Hx Alcohol Use: No - Smoking History Smoking history: Never smoked Have you smoked in the past 12 months: No If you are a former smoker, when did you quit?: 35YRS Home Medications - Allergies Allergies/Adverse Reactions: Allergies Allergy/AdvReac Type Severity Reaction Status Date / Time oxycodone Allergy Intermediate Verified 07/22/17 16:41 acetaminophen [From Percocet] Allergy Verified 07/22/17 16:41 cinacalcet HCl Allergy Verified 07/22/17 16:41 [From Sensipar] oxycodone HCl [From Percocet] Allergy Verified 07/22/17 16:41 - Home Medications Home Medications: Ambulatory Orders Acetaminophen 325 mg PO QID 03/09/17 Amlodipine Besylate [Norvasc -] 10 mg PO DAILY 03/09/17 Aspirin [ASA -] 81 mg PO DAILY 03/09/17 Calcium Acetate [Phoslo -] 667 mg PO TIDCM 03/09/17 Clopidogrel Bisulfate [Clopidogrel] 75 mg PO DAILY 03/09/17 Docusate Sodium [Colace -] 100 mg PO DAILY 03/09/17 Hydralazine HCl [Apresoline -] 25 mg PO TID 03/09/17 Metoprolol Tartrate [Lopressor -] 25 mg PO BID #20 tablet 03/13/17 Sevelamer Carbonate [Renvela -] 800 mg PO TIDCM tab 03/13/17 Physical Exam Vital Signs: Vital Signs Temperature 98.4 F 07/23/17 11:09 Pulse Rate 72 07/23/17 11:09 Respiratory Rate 16 07/23/17 11:09 Blood Pressure 194/74 07/23/17 11:09 O2 Sat by Pulse Oximetry (%) 97 07/23/17 11:09 Constitutional: Yes: No Distress Extremities: Yes: Other (Left upper arm fistula with pulse and bruit. Proximal section has no pulse.) Problem List - Problems (1) Thrombosis of arteriovenous fistula Assessment/Plan: Unclear if fistula is thrombosed or severe narrowing proximally. Duplex ultrasound ordered to evaluate flow. If fistula thrombosed will need temporary catheter for dialysis before attempting thrombectomy. Code(s): T82.868A - THROMBOSIS DUE TO VASCULAR PROSTH DEV/GRFT, INIT Qualifiers: Encounter type: initial encounter Qualified Code(s): T82.868A - Thrombosis due to vascular prosthetic devices, implants and grafts, initial encounter; T82.868A - Thrombosis due to vascular prosthetic devices, implants and grafts, initial encounter; T82.868A - Thrombosis due to vascular prosthetic devices, implants and grafts, initial encounter
[2017-07-23] MEDS ORDERED: SEVELAMER CARBONATE 800 MG TAB (FP) PO SCH (12:00)
[2017-07-23] MEDS: CALCIUM ACETATE 667 MG CAPSULE (FP) PO SCH ×2 (12:55→17:19)
--- NOTE | 2017-07-23 13:06 | EKG ---
Test Reason : Blood Pressure : / mmHG Vent. Rate : 071 BPM Atrial Rate : 071 BPM P-R Int : 168 ms QRS Dur : 092 ms QT Int : 438 ms P-R-T Axes : 049 -15 061 degrees QTc Int : 475 ms NORMAL SINUS RHYTHM POSSIBLE LEFT ATRIAL ENLARGEMENT BORDERLINE ECG WHEN COMPARED WITH ECG OF 11-MAR-2017 11:58, T WAVE INVERSION NO LONGER EVIDENT IN INFERIOR LEADS Confirmed by MITUL MIRAMONTES, QASIM ([id number]) on 07/23/2017 1:05:58 PM Referred By: Confirmed By:QASIM BAUMAN MD
--- NOTE | 2017-07-23 13:16 | CON.NEP ---
Consult Consult Specialty:: Nephrology Referred by:: MANJU Ferguson Reason for Consultation:: ESRD on HD - History of Present Illness Chief Complaint: Uncontrolled Hypertension History of Present Illness: This is a 72 year old woman with PMhx of ESRD on HD, Hypertension, Hyperlipidemia, DVT who was sent from her HD unit for hypertensive urgency. Pt last had dialysis on Thursday. BP has been high on dialysis and recently presribed Norvac but has not started taking it yet. Pt is on ACEi, Hydralazine. Pt denies any PASCUAL, CP, SOB, Blurry vision today. No N/V/D. Denies any edema in LE. - History Source History Provided By: Patient Limitations to Obtaining History: No Limitations - Past Medical History Cardio/Vascular: Yes: HTN, Other (PAD) Renal/: Yes: Renal Failure, Hemodialysis - Past Surgical History Past Surgical History: Yes: AV Fistula/Graft - Alcohol/Substance Use Hx Alcohol Use: No - Smoking History Smoking history: Never smoked Have you smoked in the past 12 months: No If you are a former smoker, when did you quit?: 35YRS Home Medications - Allergies Allergies/Adverse Reactions: Allergies Allergy/AdvReac Type Severity Reaction Status Date / Time oxycodone Allergy Intermediate Verified 07/22/17 16:41 acetaminophen [From Percocet] Allergy Verified 07/22/17 16:41 cinacalcet HCl Allergy Verified 07/22/17 16:41 [From Sensipar] oxycodone HCl [From Percocet] Allergy Verified 07/22/17 16:41 - Home Medications Home Medications: Ambulatory Orders Acetaminophen 325 mg PO QID 03/09/17 Amlodipine Besylate [Norvasc -] 10 mg PO DAILY 03/09/17 Aspirin [ASA -] 81 mg PO DAILY 03/09/17 Calcium Acetate [Phoslo -] 667 mg PO TIDCM 03/09/17 Clopidogrel Bisulfate [Clopidogrel] 75 mg PO DAILY 03/09/17 Docusate Sodium [Colace -] 100 mg PO DAILY 03/09/17 Hydralazine HCl [Apresoline -] 25 mg PO TID 03/09/17 Metoprolol Tartrate [Lopressor -] 25 mg PO BID #20 tablet 03/13/17 Sevelamer Carbonate [Renvela -] 800 mg PO TIDCM tab 03/13/17 Family Disease History - Family Disease History Family History: Unremarkable Review of Systems - Review of Systems Constitutional: reports: No Symptoms Eyes: reports: No Symptoms HENT: reports: No Symptoms Neck: reports: No Symptoms Cardiovascular: reports: No Symptoms Respiratory: reports: No Symptoms Gastrointestinal: reports: No Symptoms Genitourinary: reports: No Symptoms Musculoskeletal: reports: No Symptoms Integumentary: reports: No Symptoms Neurological: reports: No Symptoms Nephrology Consult - Height Height: 5 ft 3 in - Weight Weight: 130 lb - BMI Body Mass Index (BMI): 23.0 - Lab Results Anion Gap: Anion Gap Anion Gap 12 (8-16) 07/22/17 19:15 - Imaging Chest X-ray: Report Reviewed - Physical Examination Vital Signs: Vital Signs Temperature 98.4 F 07/23/17 11:09 Pulse Rate 72 07/23/17 11:09 Respiratory Rate 16 07/23/17 11:09 Blood Pressure 194/74 07/23/17 11:09 O2 Sat by Pulse Oximetry (%) 97 07/23/17 11:09 Constitutional: Yes: Well Nourished, No Distress HENT: Yes: Atraumatic Neck: Yes: Supple Cardiovascular: Yes: Regular Rate and Rhythm Respiratory: Yes: Regular, CTA Bilaterally Gastrointestinal: Yes: Normal Bowel Sounds, Soft. No: Tenderness Renal/: No: Bladder Distention Access for Hemodialysis: AV Fistula Edema: Yes Peripheral Pulses WNL: Yes Neurological: Yes: Alert, Oriented Problem List - Problems (1) ESRD (end stage renal disease) Code(s): N18.6 - END STAGE RENAL DISEASE (2) HTN (hypertension) Code(s): I10 - ESSENTIAL (PRIMARY) HYPERTENSION Qualifiers: Hypertension type: essential hypertension Qualified Code(s): I10 - Essential (primary) hypertension; I10 - Essential (primary) hypertension; I10 - Essential (primary) hypertension (3) PAD (peripheral artery disease) Code(s): I73.9 - PERIPHERAL VASCULAR DISEASE, UNSPECIFIED (4) Uncontrolled hypertension Code(s): I10 - ESSENTIAL (PRIMARY) HYPERTENSION Assessment/Plan 72 year old woman with PMhx of ESRD on HD, Hypertension, Hyperlipidemia, DVT who was sent from her HD unit for hypertensive urgency. #Hypertensive urgency Likely due to non-compliance with meds and mild volume expansion Start Losartan (was on Lisinpril at home, ARBs are not elimiated with HD and thus will have better BP control) Continue Hydralazine but increase dose to 50mg TID continue Amlodipine 10mg Daily ? unclear if pt was on Metoprolol at home Pt should be discharged on the the above medications +/- Metoprolol if she was already on it at home #ESRD on HD will paln for 3.5 hour HD today with planend UF of 2.5-3L Renal Diet 1.2 L fluid restriction dose all meds for intermittent HD #? malfunction of AVF pt with good thrill and bruit of the AVF to check pressures on HD today vascular following follow up doppler US #CKD related Anemia Hgb at goal holding SHASHA Thank you Will follow Chris Nolasco Do
[2017-07-23] MEDS: LOSARTAN POTASSIUM 50 MG TABLET (FP) PO SCH (13:50)
[2017-07-23] MEDS: hydrALAZINE HCL 50 MG TABLET (FP) PO SCH ×2 (13:50→21:51)
[2017-07-23] MEDS ORDERED: hydrALAZINE HCL 25 MG TABLET (FP) PO SCH (14:00)
[2017-07-23 14:09] LABS: BASOPHIL 0.5 % (0-2.0); EOSINOPHIL 2.8 % (0-4.5); MCH 29.1 pg (25.7-33.7); MCHC 31.2 g/dl (32.0-36.0); MEAN CELL VOLUME 93.5 fl (80-96); MEAN PLT VOLUME 9.1 fl (7.5-11.1); NEUTROPHILS 61.7 % (42.8-82.8); PLATELET COUNT 148 K/MM3 (134-434); RDW 20.4 % (11.6-15.6); WHITE BLOOD COUNT 6.6 K/mm3 (4.0-10.0)
[2017-07-23 14:28] LABS: ANION GAP 13 (8-16); CALCIUM 8.1 mg/dL (8.5-10.1); CO2 23 mmol/L (21-32); GLUCOSE,RANDOM 90 mg/dL (74-106); SGPT/ALT 8 U/L (12-78)
[2017-07-23 14:40] LABS: ALK PHOS 136 U/L (45-117); BILIRUBIN,TOTAL 0.3 mg/dL (0.2-1.0); TOT PROT 6.8 g/dl (6.4-8.2)
[2017-07-23 14:42] LABS: SGOT/AST 4 U/L (15-37)
[2017-07-23 14:46] LABS: CREATININE 9.2 mg/dL (0.55-1.02)
[2017-07-23 14:57] VITALS: BMI 22.6
--- NOTE | 2017-07-23 18:00 | HOSP ---
Physical Examination Vital Signs: Vital Signs Temperature 97.9 F 07/23/17 15:14 Pulse Rate 74 07/23/17 15:14 Respiratory Rate 16 07/23/17 15:14 Blood Pressure 181/75 07/23/17 15:14 O2 Sat by Pulse Oximetry (%) 97 07/23/17 11:09 Labs: CBC, BMP 07/23/17 13:45 07/23/17 13:45 Hospitalist Encounter Assessment: Patient currently undergoing dialysis, K before dialysis 5.6, will repeat labs at 8pm Patient BP now better controlled Monitor BP
[2017-07-23 19:49] LABS: ALBUMIN 3.5 g/dl (3.4-5.0); ANION GAP 9 (8-16); CO2 30 mmol/L (21-32); GLUCOSE,RANDOM 179 mg/dL (74-106); SGPT/ALT 9 U/L (12-78)
[2017-07-23 19:51] LABS: ALK PHOS 178 U/L (45-117); BILIRUBIN,TOTAL 0.3 mg/dL (0.2-1.0); CALCIUM 8.7 mg/dL (8.5-10.1); SGOT/AST 9 U/L (15-37); TOT PROT 8.3 g/dl (6.4-8.2)
[2017-07-24] MEDS: hydrALAZINE HCL 50 MG TABLET (FP) PO SCH ×2 (05:45→14:39)
[2017-07-24] MEDS ORDERED: ACETAMINOPHEN 325 MG TABLET (FP) PO PRN (06:21)
[2017-07-24 07:23] LABS: BASOPHIL 1.1 % (0-2.0); MCH 29.2 pg (25.7-33.7); MCHC 31.6 g/dl (32.0-36.0); MEAN CELL VOLUME 92.6 fl (80-96); MEAN PLT VOLUME 9.4 fl (7.5-11.1); PLATELET COUNT 151 K/MM3 (134-434); RDW 20.1 % (11.6-15.6); WHITE BLOOD COUNT 6.4 K/mm3 (4.0-10.0)
[2017-07-24 07:44] LABS: CALCIUM 8.6 mg/dL (8.5-10.1)
[2017-07-24 07:48] LABS: ANION GAP 9 (8-16); CO2 29 mmol/L (21-32); CREATININE 6.8 mg/dL (0.55-1.02); GLUCOSE,RANDOM 83 mg/dL (74-106)
[2017-07-24] MEDS: amLODIPine BESYLATE 10 MG TABLET (FP) PO SCH (09:22)
[2017-07-24] MEDS: CLOPIDOGREL BISULFATE 75 MG TABLET (FP) PO SCH (09:22)
[2017-07-24] MEDS: CALCIUM ACETATE 667 MG CAPSULE (FP) PO SCH ×3 (09:22→17:10)
[2017-07-24] MEDS: METOPROLOL TARTRATE 25 MG TABLET (FP) PO SCH (09:22)
[2017-07-24] MEDS: ASPIRIN 81 MG CHEWABLE TABLETS PO SCH (09:22)
[2017-07-24] MEDS: DOCUSATE SODIUM 100 MG CAPSULE (FP) PO SCH (09:22)
[2017-07-24] MEDS: LOSARTAN POTASSIUM 50 MG TABLET (FP) PO SCH (09:22)
--- NOTE | 2017-07-24 10:10 | PN ---
Physical Exam: SUBJECTIVE: Patient seen and examined OBJECTIVE: medication list obtained by PCP office and in chart Changed Metoprolol to coreq Plavix is to be given orally MWF AFTER dialysis Patient also on Renvela and a antibiotic (ciftazidime 1 gm at dialysis) > will defer this to renal Vital Signs Period Temp Pulse Resp BP Sys/Leyva Pulse Ox Last 24 Hr 97.9 F-98.7 F 69-79 16-20 124-209/58-86 97-100 ENERAL: Awake, alert, and fully oriented, in no acute distress. HEAD: Normal with no signs of trauma. EYES: Pupils equal, round and reactive to light, extraocular movements intact, sclera anicteric, conjunctiva clear. No lid lag. EARS, NOSE, THROAT: Ears normal, nares patent, oropharynx clear without exudates. Moist mucous membranes. NECK: Normal range of motion, supple without lymphadenopathy, JVD, or masses. LUNGS: No wheezes, and no crackles. No accessory muscle use. Diminished breath sounds bilaterally HEART: Regular rate and rhythm, normal S1 and S2, No rub or gallop.Grade 2 systolic murmur ABDOMEN: Soft, nontender, not distended, normoactive bowel sounds, no guarding, no rebound, no masses. No hepatomegaly or splenomegaly. MUSCULOSKELETAL: Normal range of motion at all joints. No bony deformities or tenderness. No CVA tenderness. UPPER EXTREMITIES: 2+ pulses, warm, well-perfused. No cyanosis. No clubbing. No peripheral edema. +Thrill/Bruit to Left AV Fistula LOWER EXTREMITIES: 2+ pulses, warm, well-perfused. No calf tenderness. No peripheral edema. + left NEUROLOGICAL: Cranial nerves II-XII intact. Normal speech. Gait not observed PSYCHIATRIC: Cooperative. Good eye contact. Appropriate mood and affect. SKIN: Warm, dry, normal turgor, no rashes noted, normal capillary refill. left food bandaged with wound vac. Laboratory Results - last 24 hr 07/23/17 07/23/17 07/23/17 13:45 13:45 19:00 WBC 6.6 RBC 3.51 L Hgb 10.2 L Hct 32.8 MCV 93.5 MCH 29.1 MCHC 31.2 L RDW 20.4 H Plt Count 148 MPV 9.1 Neutrophils % 61.7 Lymphocytes % 26.1 Monocytes % 8.9 Eosinophils % 2.8 Basophils % 0.5 Sodium 141 138 Potassium 5.6 H 3.5 D Chloride 105 99 Carbon Dioxide 23 30 D Anion Gap 13 9 BUN 79 H 28 H D Creatinine 9.2 H* 4.0 H D Creat Clearance w eGFR 4.21 11.01 Random Glucose 90 179 H D Calcium 8.1 L 8.7 Total Bilirubin 0.3 0.3 AST 4 L D 9 L D ALT 8 L 9 L Alkaline Phosphatase 136 H 178 H D Total Protein 6.8 8.3 H D Albumin 3.0 L 3.5 07/24/17 07/24/17 05:40 05:40 WBC 6.4 RBC 3.73 Hgb 10.9 Hct 34.5 MCV 92.6 MCH 29.2 MCHC 31.6 L RDW 20.1 H Plt Count 151 MPV 9.4 Neutrophils % 57.0 Lymphocytes % 29.9 Monocytes % 9.0 Eosinophils % 3.0 Basophils % 1.1 Sodium 140 Potassium 4.7 D Chloride 102 Carbon Dioxide 29 Anion Gap 9 BUN 53 H D Creatinine 6.8 H D Creat Clearance w eGFR Random Glucose 83 D Calcium 8.6 Total Bilirubin AST ALT Alkaline Phosphatase Total Protein Albumin Active Medications Generic Name Dose Route Start Last Admin Trade Name Freq PRN Reason Stop Dose Admin Acetaminophen 650 mg 07/24/17 06:21 Tylenol - PO Q6H PRN FEVER OR PAIN Amlodipine Besylate 10 mg 07/23/17 11:15 07/24/17 09:22 Norvasc - PO 10 mg DAILY [facility] Administration Aspirin 81 mg 07/23/17 11:15 07/24/17 09:22 Asa - PO 81 mg DAILY [facility] Administration Calcium Acetate 667 mg 07/23/17 12:00 07/24/17 09:22 Phoslo - PO 667 mg TIDCM [facility] Administration Carvedilol 25 mg 07/24/17 22:00 Coreg - PO BID [facility] Clopidogrel Bisulfate 75 mg 07/24/17 10:01 Plavix - PO DAILY [facility] Docusate Sodium 100 mg 07/23/17 11:15 07/24/17 09:22 Colace - PO 100 mg DAILY [facility] Administration Hydralazine HCl 50 mg 07/23/17 14:00 07/24/17 05:45 Apresoline - PO 50 mg TID [facility] Administration Losartan Potassium 50 mg 07/23/17 14:00 07/24/17 09:22 Cozaar - PO 50 mg DAILY [facility] Administration ASSESSMENT/PLAN: This is a 72 y/o woman with a PMHx of ESRD (HD, MWF), HTN, HLD, DVT L- arm. Placed in Tele Observation for Hypertension Emergency, CKD for further evaluation of their emergent condition. Hypertension Emergency, resolved Medication list retrieved from PCP Now on her home medications, BP better controlled Losartan started instead of home Lisinopril On Coreq BID, Hydralazine increased to 50mg TID, Norvasc 10mg daily Tele monitoring Dialysis today then discharge ESRD on HD, chronic Additional HD today, patient to resume regular MWF schedule No malfunction of AVF AVF functioned well with HD yesterday and today LE wound, chronic Renal to give Will give Fortaz with HD Discharge after dialysis if BP remains stable.
[2017-07-24] MEDS ORDERED: cefTAZidime PENTAHYDRATE 1 GM/50ML PRE-DOCKED (RESTRICTED TO ID) IVPB ONE (13:50)
[2017-07-24 15:11] VITALS: TEMP 98.2
--- NOTE | 2017-07-24 15:21 | PN ---
Progress Note (short form) - Note Progress Note: Renal Follow up for ESRD on HD Pt seen and examined at the bedside no acute complaints no sob, chest pain, abd pain, N/V/D s/p dialysis yesterday BP improved Vital Signs Temperature 98.2 F 07/24/17 14:45 Pulse Rate 68 07/24/17 14:50 Respiratory Rate 18 07/24/17 14:50 Blood Pressure 148/53 07/24/17 14:50 O2 Sat by Pulse Oximetry (%) 100 07/24/17 07:00 Intake & Output 07/21/17 07/22/17 07/23/17 07/24/17 23:59 23:59 23:59 23:59 Intake Total 300 550 Balance 300 550 Weight 130 lb 130 lb NAD RRR, No M/R CTA Right Foot in dressing s/p TMA, dressing is clean CBC, BMP 07/24/17 05:40 07/24/17 05:40 Current Medications Acetaminophen (Tylenol -) 650 mg PO Q6H PRN PRN Reason: FEVER OR PAIN Amlodipine Besylate (Norvasc -) 10 mg PO DAILY [facility] Last Admin: 07/24/17 09:22 Dose: 10 mg Aspirin (Asa -) 81 mg PO DAILY [facility] Last Admin: 07/24/17 09:22 Dose: 81 mg Calcium Acetate (Phoslo -) 667 mg PO TIDCM [facility] Last Admin: 07/24/17 14:21 Dose: Not Given Carvedilol (Coreg -) 25 mg PO BID [facility] Clopidogrel Bisulfate (Plavix -) 75 mg PO MoWeFr@1000 [facility] Docusate Sodium (Colace -) 100 mg PO DAILY [facility] Last Admin: 07/24/17 09:22 Dose: 100 mg Hydralazine HCl (Apresoline -) 50 mg PO TID [facility] Last Admin: 07/24/17 14:39 Dose: Not Given Ceftazidime 1 gm/ Dextrose 50 mls @ 100 mls/hr IVPB ONCE ONE Stop: 07/24/17 15:59 Losartan Potassium (Cozaar -) 50 mg PO DAILY [facility] Last Admin: 07/24/17 09:22 Dose: 50 mg A/P 72 year old woman with PMhx of ESRD on HD, Hypertension, Hyperlipidemia, DVT who was sent from her HD unit for hypertensive urgency. #Hypertensive urgency BP improved wit oral meds and UF with Hd continue Losartan 50mg, Hydralazine 50mg TID, Coreg Further UF wit Hd today #ESRD on HD for additional HD to resume regular MWF schedule UF as tolerated #? malfunction of AVF AVF functioned well with HD yesterday #LE wound Will give Fortaz 1g IV with Hd today to follow up with podiatry and vascular sx as outpatient d/c planning if BP remains stabl e Chris Nolasco Do Problem List - Problems (1) ESRD (end stage renal disease) Code(s): N18.6 - END STAGE RENAL DISEASE (2) HTN (hypertension) Code(s): I10 - ESSENTIAL (PRIMARY) HYPERTENSION Qualifiers: Hypertension type: essential hypertension Qualified Code(s): I10 - Essential (primary) hypertension; I10 - Essential (primary) hypertension; I10 - Essential (primary) hypertension (3) PAD (peripheral artery disease) Code(s): I73.9 - PERIPHERAL VASCULAR DISEASE, UNSPECIFIED (4) Uncontrolled hypertension Code(s): I10 - ESSENTIAL (PRIMARY) HYPERTENSION
[2017-07-24] MEDS ORDERED: CEFTAZIDIME PENTAHYDRATE 1 GM in DEXTROSE 5%-WATER - 50 ML IVPB ONE (15:30)
--- NOTE | 2017-07-24 16:28 | DS ---
Physical Exam: SUBJECTIVE: Patient seen and examined OBJECTIVE: patient seen in dialysis, BP stable, will discharge Vital Signs Period Temp Pulse Resp BP Sys/Leyva Pulse Ox Last 24 Hr 97.8 F-98.7 F 65-79 16-20 124-184/50-81 97-100 PHYSICAL EXAM ENERAL: Awake, alert, and fully oriented, in no acute distress. HEAD: Normal with no signs of trauma. EYES: Pupils equal, round and reactive to light, extraocular movements intact, sclera anicteric, conjunctiva clear. No lid lag. EARS, NOSE, THROAT: Ears normal, nares patent, oropharynx clear without exudates. Moist mucous membranes. NECK: Normal range of motion, supple without lymphadenopathy, JVD, or masses. LUNGS: No wheezes, and no crackles. No accessory muscle use. Diminished breath sounds bilaterally HEART: Regular rate and rhythm, normal S1 and S2, No rub or gallop.Grade 2 systolic murmur ABDOMEN: Soft, nontender, not distended, normoactive bowel sounds, no guarding, no rebound, no masses. No hepatomegaly or splenomegaly. MUSCULOSKELETAL: Normal range of motion at all joints. No bony deformities or tenderness. No CVA tenderness. UPPER EXTREMITIES: 2+ pulses, warm, well-perfused. No cyanosis. No clubbing. No peripheral edema. +Thrill/Bruit to Left AV Fistula LOWER EXTREMITIES: 2+ pulses, warm, well-perfused. No calf tenderness. No peripheral edema. + left NEUROLOGICAL: Cranial nerves II-XII intact. Normal speech. Gait not observed PSYCHIATRIC: Cooperative. Good eye contact. Appropriate mood and affect. SKIN: Warm, dry, normal turgor, no rashes noted, normal capillary refill. left food bandaged with wound vac. LABS Laboratory Results - last 24 hr 07/23/17 07/24/17 07/24/17 19:00 05:40 05:40 WBC 6.4 RBC 3.73 Hgb 10.9 Hct 34.5 MCV 92.6 MCH 29.2 MCHC 31.6 L RDW 20.1 H Plt Count 151 MPV 9.4 Neutrophils % 57.0 Lymphocytes % 29.9 Monocytes % 9.0 Eosinophils % 3.0 Basophils % 1.1 Sodium 138 140 Potassium 3.5 D 4.7 D Chloride 99 102 Carbon Dioxide 30 D 29 Anion Gap 9 9 BUN 28 H D 53 H D Creatinine 4.0 H D 6.8 H D Creat Clearance w eGFR 11.01 Random Glucose 179 H D 83 D Calcium 8.7 8.6 Total Bilirubin 0.3 AST 9 L D ALT 9 L Alkaline Phosphatase 178 H D Total Protein 8.3 H D Albumin 3.5 HOSPITAL COURSE: Date of Admission:07/23/17 Date of Discharge: 07/24/17 Discharge Summary Reason For Visit: HYPERTENSION/HYPERKALEMIA Current Active Problems ESRD (end stage renal disease) (Acute) HTN (hypertension) (Acute) PAD (peripheral artery disease) (Acute) Uncontrolled hypertension (Acute) Volume overload (Acute) Condition: Improved - Instructions Diet, Activity, Other Instructions: Mrs Lund: Please note the following changes to your medications: Losartan 50mg instead of Lisinopril Coreq 25mg twice per day Hydralazine 50mg three times per day Norvasc 10mg daily Referrals: Savannah Navarro [Primary Care Provider] - Disposition: HOME - Home Medications Comprehensive Discharge Medication List: Ambulatory Orders Acetaminophen 325 mg PO QID 03/09/17 Amlodipine Besylate [Norvasc -] 10 mg PO DAILY 03/09/17 Aspirin [ASA -] 81 mg PO DAILY 03/09/17 Calcium Acetate [Phoslo -] 667 mg PO TIDCM 03/09/17 Clopidogrel Bisulfate [Clopidogrel] 75 mg PO DAILY 03/09/17 Docusate Sodium [Colace -] 100 mg PO DAILY 03/09/17 Hydralazine HCl [Apresoline -] 25 mg PO TID 03/09/17 Metoprolol Tartrate [Lopressor -] 25 mg PO BID #20 tablet 03/13/17 Sevelamer Carbonate [Renvela -] 800 mg PO TIDCM tab 03/13/17
[2017-07-24 17:45] VITALS: BP 130/62; PULSE 68
[2017-07-24] MEDS ORDERED: CARVEDILOL 25 MG TABLET (FP) PO SCH (22:00)
[2017-07-26 06:37] LABS: HEP B SURFACE AB Reactive (.)
[2017-07-27] MEDS ORDERED: CLOPIDOGREL BISULFATE 75 MG TABLET (FP) PO SCH (10:00)
== END 2017-07-24 20:03 | disposition home or self-care (01) ==
LOC: JER 16:20 → JERBED 07-23 00:55 → UNDOADMOB 07-23 01:04 → J4S 07-23 13:20
PROVIDERS: ADMIT Internal Medicine; ATTEND Nurse Practitioner Family
PROC: 3E03329 Introduction of Other Anti-infective into Peripheral Vein, Percutaneous Approach (ICD-10-PCS; principal; 2017-07-23)
PROC: 3E033GC Introduction of Other Therapeutic Substance into Peripheral Vein, Percutaneous Approach (ICD-10-PCS; 2017-07-23)
DX: I12.0 Hypertensive chronic kidney disease with stage 5 chronic kidney disease or end stage renal disease (principal); I16.1 Hypertensive emergency; E11.22 Type 2 diabetes mellitus with diabetic chronic kidney disease; N18.6 End stage renal disease; Z99.2 Dependence on renal dialysis; I73.9 Peripheral vascular disease, unspecified; T82.868A Thrombosis due to vascular prosthetic devices, implants and grafts, initial encounter; E87.79 Other fluid overload; E78.5 Hyperlipidemia, unspecified; Z86.718 Personal history of other venous thrombosis and embolism; Z86.73 Personal history of transient ischemic attack (TIA), and cerebral infarction without residual deficits; Z88.6 Allergy status to analgesic agent; Z79.82 Long term (current) use of aspirin
CPT/HCPCS: 36415; 71010-TC; 80048; 80053; 83880; 85025; 85610; 86704; 86706; 86708; 86803; 87340; 93005; 93010; 93971; 96365; 96375; 99285-25; G0378

== ENCOUNTER 2017-07-27 14:41 | Observation (INO) | payer OTHER, MEDICARE ==
[2017-07-27 14:46] VITALS: BMI 23.0
--- NOTE | 2017-07-27 14:56 | PDOC ---
History of Present Illness - General Chief Complaint: Dialysis Shunt Problem Stated Complaint: REVISIT Time Seen by Provider: 07/27/17 14:55 - History of Present Illness Initial Comments: This is a 72 y/o woman with PMH of ESRD (HD M,W,F), HTN, HLD, DVT (L- Arm, 03/20 ), diverticulitis (s/p colectomy 2011), and PVD (s/p L TMA 02/18) presenting from her Dialysis Center for inability to initiate dialysis because "they were not able to hear any flow". Patient otherwise feels well with only complaint of continued fecal incontinence since her colectomy 5 years prior.. Patient denies fever, chills, cough, SOB, dizziness, CP, AP, N/V/D, or constipation. PCP Dr. Savannah Navarro ([facility]) 07/27/17 16:08 Past History - Past Medical History Allergies/Adverse Reactions: Allergies Allergy/AdvReac Type Severity Reaction Status Date / Time oxycodone Allergy Intermediate Verified 07/22/17 16:41 cinacalcet HCl Allergy Verified 07/22/17 16:41 [From Sensipar] oxycodone HCl [From Percocet] Allergy Verified 07/22/17 16:41 Home Medications: Ambulatory Orders Acetaminophen 325 mg PO QID 03/09/17 Clopidogrel Bisulfate [Clopidogrel] 75 mg PO DAILY 03/09/17 Docusate Sodium [Colace -] 100 mg PO DAILY 03/09/17 Sevelamer Carbonate [Renvela -] 800 mg PO TIDCM tab 03/13/17 Amlodipine Besylate [Norvasc -] 10 mg PO DAILY #30 tab 07/24/17 Aspirin [ASA -] 81 mg PO DAILY tab.chew 07/24/17 Carvedilol [Coreg -] 25 mg PO BID #90 tablet 07/24/17 Clopidogrel Bisulfate [Plavix -] 75 mg PO MoWeFr@1000 tablet 07/24/17 Hydralazine HCl [Apresoline -] 50 mg PO TID #90 tablet 07/24/17 Losartan Potassium [Cozaar -] 50 mg PO DAILY #60 tablet 07/24/17 CVA: Yes Diabetes: Yes Dialysis: Yes (M-W-F) Disorders: Yes (DIALYSIS-M/W/FR) HTN: Yes - Surgical History Abdominal Surgery: Yes (COLECTOMY) - Immunization History Td Vaccination: Yes TDAP Vaccination: Yes Immunization Up to Date: Yes - Suicide/Smoking/Psychosocial Hx Smoking History: Former smoker Have you smoked in the past 12 months: No If you are a former smoker, when did you quit?: 35YRS Information on smoking cessation initiated: No Hx Alcohol Use: No Drug/Substance Use Hx: No Substance Use Type: None Hx Substance Use Treatment: No Review of Systems - Review of Systems Constitutional: No: Chills, Diaphoresis, Fever HEENTM: No: Blurred Vision, Recent change in vision Respiratory: No: Cough, Orthopnea, Shortness of Breath Cardiac (ROS): No: Chest Pain ABD/GI: No: Abdominal Distended, Constipated, Diarrhea : No: Burning Musculoskeletal: No: Back Pain *Physical Exam - Vital Signs Last Vital Signs Temp Pulse Resp BP Pulse Ox 97.6 F 65 16 160/65 98 07/27/17 14:43 07/27/17 14:43 07/27/17 14:43 07/27/17 14:43 07/27/17 14:43 - Physical Exam General Appearance: Yes: Nourished, Appropriately Dressed. No: Apparent Distress HEENT: positive: EOMI, Normal Voice Respiratory/Chest: positive: Lungs Clear, Normal Breath Sounds. negative: Chest Tender, Respiratory Distress Cardiovascular: positive: Regular Rhythm, Regular Rate. negative: Murmur Gastrointestinal/Abdominal: positive: Normal Bowel Sounds, Flat. negative: Tender Musculoskeletal: negative: Normal Inspection (Left LLE bandaged with wound vac in place) Extremity: negative: Normal Inspection (Left UE AV fistula loop with pulsation and turbulent auscultation. There is an old loop/ vistula medial to this which has no pulsating or auscultory findings.) Integumentary: positive: Normal Color, Dry, Warm Neurologic: positive: padded products finisher II-XII NML intact, Fully Oriented, Alert ED Treatment Course - LABORATORY CBC & Chemistry Diagram: 07/27/17 15:42 07/27/17 15:42 Medical Decision Making - Medical Decision Making 72 yea old female with PMH of ESRD(M,W, F) presenting with questionable functionality of her loop AVF. Patient was admitted a few days prior for the same issue and was dialyzed successfully with a Doppler evidencing a perfectly patent Left UE AV Loop. We were going to get a new Doppler of the AVF but per radiology: there would be no reason to re-evaluate the AVF with a Doppler because it should still be patent 4 days later. We surmise that there is either a central vascular occlusion or the center is canulating the old fistula (there are two fistula sites directly next to each other). There is pulsation and turbulent flow on auscultation at the lateral fistula site. Spoke with Dr. Reagan Patel and Alesha. will admit patient for obs for dialysis and fistula evaluation. 07/27/17 16:50 *DC/Admit/Observation/Transfer Diagnosis at time of Disposition: Dialysis AV fistula malfunction Qualifiers: Encounter type: subsequent encounter Qualified Code(s): T82.590D - Other mechanical complication of surgically created arteriovenous fistula, subsequent encounter - Discharge Dispostion Admit: Yes - Referrals Referrals: Savannah Navarro [Primary Care Provider] -
[2017-07-27 15:55] LABS: BASOPHIL 0.8 % (0-2.0); EOSINOPHIL 1.3 % (0-4.5); MCH 29.5 pg (25.7-33.7); MCHC 32.2 g/dl (32.0-36.0); MEAN CELL VOLUME 91.8 fl (80-96); NEUTROPHILS 77.2 % (42.8-82.8); PLATELET COUNT 152 K/MM3 (134-434); WHITE BLOOD COUNT 9.5 K/mm3 (4.0-10.0)
[2017-07-27 16:11] LABS: ALBUMIN 3.4 g/dl (3.4-5.0); ANION GAP 18 (8-16); BILIRUBIN,TOTAL 0.3 mg/dL (0.2-1.0); CO2 25 mmol/L (21-32); GLUCOSE,RANDOM 212 mg/dL (74-106); SGOT/AST 9 U/L (15-37); SGPT/ALT 9 U/L (12-78); TOT PROT 8.1 g/dl (6.4-8.2)
[2017-07-27 16:16] LABS: ALK PHOS 173 U/L (45-117)
--- NOTE | 2017-07-27 16:22 | PDOC ---
Attending Attestation - Resident Resident Name: Diallo Saeed - ED Attending Attestation I have performed the following: I have examined & evaluated the patient, The case was reviewed & discussed with the resident, I agree w/resident's findings & plan, Exceptions are as noted - HPI HPI: 07/27/17 16:17 72 F with ESRD (HD M,W,F), HTN, HLD, presenting from HD center for difficulty accessing AVF. Pt states that the nurse listened to her AVF and could not "hear anything", so she was sent to the ER for evaluation. Pt states that there was no attempt to access her fistula. SHe denies any complaints. No CP/SOB. Pt was admitted last week for a similar issue. She was told by her HD center that her AVF was malfunctioning. However, US of AVF showed patent fistula. She successfully had HD and was DC'ed home. - Physicial Exam PE: 07/27/17 16:20 "GENERAL: Awake, alert, and fully oriented, in no acute distress HEAD: No signs of trauma EYES: PERRLA, EOMI, sclera anicteric, conjunctiva clear ENT: Auricles normal inspection, hearing grossly normal, nares patent, oropharynx clear without exudates. Moist mucosa NECK: Nontender, no stepoffs, Normal ROM, supple, no lymphadenopathy, JVD, or masses LUNGS: Breath sounds equal, clear to auscultation bilaterally. No wheezes, and no crackles HEART: Regular rate and rhythm, normal S1 and S2, no murmurs, rubs or gallops ABDOMEN: Soft, nontender, normoactive bowel sounds. No guarding, no rebound. No masses EXTREMITIES: LUE with AVF in place, palpable thrill, distal pulses normal NEUROLOGICAL: Cranial nerves II through XII intact. 5/5 strength and sensation in all extremities, Normal speech, normal gait SKIN: Warm, Dry, normal turgor, no rashes or lesions noted. " - Medical Decision Making 07/27/17 16:22 72 F with missed HD after being turned away from HD center. Pt with palpable thrill in L AVF. Had US last week that showed patent AVF and subsequent successful HD. - Labs - Call pig machine operator to schedule HD today - US of AVF ordered but declined by radiologist due to pt recently having a normal US - Will attempt HD here 07/27/17 17:13 Pt transported to HD. Will reassess afterwards and repeat US if necessary. 07/27/17 19:00 HD unsuccessful AVF US ordered, showing new thrombosis. Vascular surgery aware, pt admitted to hospitalist.
[2017-07-27 16:32] LABS: INR 0.99 (0.82-1.09); PROTHROMBIN TIME (PATIENT) 11.2 SEC (9.98-11.88)
[2017-07-27 16:38] LABS: CREATININE 10.2 mg/dL (0.55-1.02)
[2017-07-27] MEDS ORDERED: HEPARIN NA (PORCINE) 5,000 UNITS/ML 1ML VIAL ONE (18:47)
--- NOTE | 2017-07-27 19:49 | PROC ---
Central Line Insertion - Procedure Note TIME OUT performed prior to this procedure with verbal confirmation of correct patient identity, correct side, agreement of the procedure, correct patient position, availability of necessary equipment. The consent form is complete and accurate. Risk of possible infection and bleeding have been discussed with the patient. Safety precautions based on patient history or medication use has been addressed. INR 0.99 Indication: Other (Malfunctioning LUE AVF) Consent on Chart: Yes Central Line: Dialysis Cath, Dual Lumen Position: Reverse Trendelenberg Area prepped with Chlorhexidine solution then draped using sterile barrier protection. Anesthesia: Lidocaine 1% Technique used: Seldinger Ultrasound Guided Assistance: No Site: Left Femoral Dark venous non-pulsatile flow noted from hub of needle. The catheter was introduced. Guide wire removed intact. Each port aspirated then flushed with sterile normal saline followed by 1.5 mL of heparin into each port then capped. Line secured to skin with nylon suture. Sterile occlusive dressing applied. No complications. Patient tolerated the procedure well. HD notified. Scheduled for HD in the AM
--- NOTE | 2017-07-27 22:31 | HP ---
Admitting History and Physical - Primary Care Physician PCP: Hamlet Eduardo - Admission History of Present Illness: 72 F with ESRD (HD M,W,F), HTN, HLD, presenting from HD center for difficulty accessing AVF. Pt states that the nurse listened to her AVF and could not "hear anything", so she was sent to the ER for evaluation. Pt states that there was no attempt to access her fistula. SHe denies any complaints. No CP/SOB. Pt was admitted last week for a similar issue. She was told by her HD center that her AVF was malfunctioning. However, US of AVF showed patent fistula. She successfully had HD and was DC'ed home. - - Past Medical History Cardiovascular: Yes: HTN, Hyperlipdemia, Other (PAD) Renal/: Yes: Renal Failure, Hemodialysis - Past Surgical History Past Surgical History: Yes: AV Fistula/Graft - Smoking History Smoking history: Former smoker Have you smoked in the past 12 months: No If you are a former smoker, when did you quit?: 35YRS - Alcohol/Substance Use Hx Alcohol Use: No Home Medications - Allergies Allergies/Adverse Reactions: Allergies Allergy/AdvReac Type Severity Reaction Status Date / Time oxycodone Allergy Intermediate Verified 07/22/17 16:41 cinacalcet HCl Allergy Verified 07/22/17 16:41 [From Sensipar] oxycodone HCl [From Percocet] Allergy Verified 07/22/17 16:41 - Home Medications Home Medications: Ambulatory Orders Acetaminophen 325 mg PO QID 03/09/17 Clopidogrel Bisulfate [Clopidogrel] 75 mg PO DAILY 03/09/17 Docusate Sodium [Colace -] 100 mg PO DAILY 03/09/17 Sevelamer Carbonate [Renvela -] 800 mg PO TIDCM tab 03/13/17 Amlodipine Besylate [Norvasc -] 10 mg PO DAILY #30 tab 07/24/17 Aspirin [ASA -] 81 mg PO DAILY tab.chew 07/24/17 Carvedilol [Coreg -] 25 mg PO BID #90 tablet 07/24/17 Clopidogrel Bisulfate [Plavix -] 75 mg PO MoWeFr@1000 tablet 07/24/17 Hydralazine HCl [Apresoline -] 50 mg PO TID #90 tablet 07/24/17 Losartan Potassium [Cozaar -] 50 mg PO DAILY #60 tablet 07/24/17 Physical Examination Vital Signs: Vital Signs Temperature 98.9 F 07/27/17 20:23 Pulse Rate 76 07/27/17 20:23 Respiratory Rate 18 07/27/17 20:23 Blood Pressure 158/65 07/27/17 20:23 O2 Sat by Pulse Oximetry (%) 96 07/27/17 20:23 Constitutional: Yes: No Distress HENT: Yes: Atraumatic Neck: Yes: Supple Cardiovascular: Yes: Regular Rate and Rhythm Respiratory: Yes: CTA Bilaterally Gastrointestinal: Yes: Normal Bowel Sounds Extremities: Yes: WNL Neurological: Yes: Alert, Oriented Problem List - Problems (1) Dialysis AV fistula malfunction Assessment/Plan: seen by surgery PA Code(s): T82.590A - [facility] COMPL OF SURGICALLY CREATED ARTERIOVENOUS FISTULA, INIT Qualifiers: Encounter type: subsequent encounter Qualified Code(s): T82.590D - Other mechanical complication of surgically created arteriovenous fistula, subsequent encounter; T82.590D - Other mechanical complication of surgically created arteriovenous fistula, subsequent encounter (2) ESRD (end stage renal disease) Assessment/Plan: on hd Code(s): N18.6 - END STAGE RENAL DISEASE Assessment/Plan Laboratory Tests 07/27/17 07/27/17 07/27/17 15:42 15:42 15:42 WBC 9.5 D RBC 4.06 Hgb 12.0 D Hct 37.2 MCV 91.8 MCH 29.5 MCHC 32.2 RDW 19.0 H Plt Count 152 MPV 10.0 Neutrophils % 77.2 D Lymphocytes % 14.3 D Monocytes % 6.4 Eosinophils % 1.3 Basophils % 0.8 PT with INR 11.20 INR 0.99 Sodium 135 L Potassium 4.5 Chloride 92 L Carbon Dioxide 25 Anion Gap 18 H BUN 78 H D Creatinine 10.2 H* D Creat Clearance w eGFR 3.74 Random Glucose 212 H D Calcium 9.0 Total Bilirubin 0.3 AST 9 L ALT 9 L Alkaline Phosphatase 173 H B-Natriuretic Peptide Total Protein 8.1 Albumin 3.4 Blood Type Antibody Screen 07/27/17 07/27/17 15:42 15:42 WBC RBC Hgb Hct MCV MCH MCHC RDW Plt Count MPV Neutrophils % Lymphocytes % Monocytes % Eosinophils % Basophils % PT with INR INR Sodium Potassium Chloride Carbon Dioxide Anion Gap BUN Creatinine Creat Clearance w eGFR Random Glucose Calcium Total Bilirubin AST ALT Alkaline Phosphatase B-Natriuretic Peptide 8966.04 H Total Protein Albumin Blood Type O POSITIVE Antibody Screen Negative Active Medications Generic Name Dose Route Start Last Admin Trade Name Freq PRN Reason Stop Dose Admin Amlodipine Besylate 10 mg 07/28/17 10:00 Norvasc - PO DAILY [facility] Aspirin 81 mg 07/28/17 10:00 Asa - PO DAILY [facility] Carvedilol 25 mg 07/28/17 10:00 Coreg - PO BID [facility] Clopidogrel Bisulfate 75 mg 07/28/17 10:00 Plavix - PO DAILY [facility] Hydralazine HCl 50 mg 07/28/17 06:00 Apresoline - PO TID [facility] Losartan Potassium 50 mg 07/28/17 10:00 Cozaar - PO DAILY [facility] Sevelamer Carbonate 800 mg 07/28/17 08:00 Renvela - PO TIDCM GEOVANI
[2017-07-28] MEDS: hydrALAZINE HCL 50 MG TABLET (FP) PO SCH ×3 (05:17→22:08)
[2017-07-28] MEDS: SEVELAMER CARBONATE 800 MG TAB (FP) PO SCH ×3 (09:00→17:51)
[2017-07-28] MEDS ORDERED: EPOETIN ALFA 10,000 UNIT/1 ML VIAL IVPUSH ONE (10:00)
[2017-07-28] MEDS: CLOPIDOGREL BISULFATE 75 MG TABLET (FP) PO SCH (12:35)
[2017-07-28] MEDS: LOSARTAN POTASSIUM 50 MG TABLET (FP) PO SCH (12:35)
[2017-07-28] MEDS: amLODIPine BESYLATE 10 MG TABLET (FP) PO SCH (12:35)
[2017-07-28] MEDS: ASPIRIN 81 MG CHEWABLE TABLETS PO SCH (12:35)
[2017-07-28] MEDS: CARVEDILOL 25 MG TABLET (FP) PO SCH ×2 (12:35→22:08)
--- NOTE | 2017-07-28 14:31 | SPA.PREOP ---
- PRE-OP NOTE Dx: Clotted LUE AVF Planned Procedure: Suction thrombectomy LUE AVF, venogram Surgeon: Hosea Rangel Consent: To be obtained by surgeon after risks, benefits and alternatives explained. Last Vital Signs Temp Pulse Resp BP Pulse Ox 98.7 F 71 18 148/64 96 07/28/17 07:40 07/28/17 11:25 07/28/17 11:25 07/28/17 11:25 07/28/17 06:08 Lab Results WBC 9.5 K/mm3 (4.0-10.0) D 07/27/17 15:42 RBC 4.06 M/mm3 (3.60-5.2) 07/27/17 15:42 Hgb 12.0 GM/dL (10.7-15.3) D 07/27/17 15:42 Hct 37.2 % (32.4-45.2) 07/27/17 15:42 MCV 91.8 fl (80-96) 07/27/17 15:42 MCHC 32.2 g/dl (32.0-36.0) 07/27/17 15:42 RDW 19.0 % (11.6-15.6) H 07/27/17 15:42 Plt Count 152 K/MM3 (134-434) 07/27/17 15:42 Sodium 135 mmol/L (136-145) L 07/27/17 15:42 Potassium 4.5 mmol/L (3.5-5.1) 07/27/17 15:42 Chloride 92 mmol/L (98-107) L 07/27/17 15:42 Carbon Dioxide 25 mmol/L (21-32) 07/27/17 15:42 Anion Gap 18 (8-16) H 07/27/17 15:42 BUN 78 mg/dL (7-18) H D 07/27/17 15:42 Creatinine 10.2 mg/dL (0.55-1.02) H* D 07/27/17 15:42 Random Glucose 212 mg/dL (74-106) H D 07/27/17 15:42 Calcium 9.0 mg/dL (8.5-10.1) 07/27/17 15:42 Blood Type O POSITIVE 07/27/17 15:42 Antibody Screen Negative 07/27/17 15:42 INR 0.99 (0.82-1.09) 07/27/17 15:42 - ASSESSMENT/PLAN Problem List - Problems (1) Thrombosis of arteriovenous fistula Assessment/Plan: 1. NPO after midnight except po meds (ordered) 2. GI/DVT PPX 3. Medical optimization / clearance 4. f/u type and screen Code(s): T82.868A - THROMBOSIS DUE TO VASCULAR PROSTH DEV/GRFT, INIT Qualifiers: Encounter type: initial encounter Qualified Code(s): T82.868A - Thrombosis due to vascular prosthetic devices, implants and grafts, initial encounter; T82.868A - Thrombosis due to vascular prosthetic devices, implants and grafts, initial encounter; T82.868A - Thrombosis due to vascular prosthetic devices, implants and grafts, initial encounter Visit type - Case Type Case Type: ED Admission
--- NOTE | 2017-07-28 14:51 | PN ---
Progress Note, Physician History of Present Illness: stable - Current Medication List Current Medications: Active Medications Amlodipine Besylate (Norvasc -) 10 mg PO DAILY [facility] Last Admin: 07/28/17 12:35 Dose: 10 mg Aspirin (Asa -) 81 mg PO DAILY [facility] Last Admin: 07/28/17 12:35 Dose: 81 mg Carvedilol (Coreg -) 25 mg PO BID [facility] Last Admin: 07/28/17 12:35 Dose: 25 mg Clopidogrel Bisulfate (Plavix -) 75 mg PO DAILY [facility] Last Admin: 07/28/17 12:35 Dose: 75 mg Hydralazine HCl (Apresoline -) 50 mg PO TID [facility] Last Admin: 07/28/17 05:17 Dose: 50 mg Losartan Potassium (Cozaar -) 50 mg PO DAILY [facility] Last Admin: 07/28/17 12:35 Dose: 50 mg Sevelamer Carbonate (Renvela -) 800 mg PO TIDCM [facility] Last Admin: 07/28/17 12:35 Dose: 800 mg - Objective Vital Signs: Vital Signs Temperature 98.7 F 07/28/17 07:40 Pulse Rate 71 07/28/17 11:25 Respiratory Rate 18 07/28/17 11:25 Blood Pressure 148/64 07/28/17 11:25 O2 Sat by Pulse Oximetry (%) 96 07/28/17 06:08 Constitutional: Yes: No Distress HENT: Yes: Atraumatic Neck: Yes: Supple Cardiovascular: Yes: Regular Rate and Rhythm Respiratory: Yes: CTA Bilaterally Gastrointestinal: Yes: Normal Bowel Sounds Extremities: Yes: WNL Neurological: Yes: Alert, Oriented Labs: INR, PTT INR 0.99 (0.82-1.09) 07/27/17 15:42 Problem List - Problems (1) Dialysis AV fistula malfunction Assessment/Plan: seen by surgery Pfor OR in am Code(s): T82.590A - [facility] COMPL OF SURGICALLY CREATED ARTERIOVENOUS FISTULA, INIT Qualifiers: Encounter type: subsequent encounter Qualified Code(s): T82.590D - Other mechanical complication of surgically created arteriovenous fistula, subsequent encounter; T82.590D - Other mechanical complication of surgically created arteriovenous fistula, subsequent encounter (2) ESRD (end stage renal disease) Assessment/Plan: on hd Code(s): N18.6 - END STAGE RENAL DISEASE
--- NOTE | 2017-07-28 17:43 | CONSULT ---
Consult Consult Specialty:: Nephrology - History of Present Illness Chief Complaint: Clotted AV Fistula History of Present Illness: This is a 72 y/o AA Female wth PMH of ESRD (HD M,W,F), HTN, HLD, DVT (L- Arm, ), diverticulitis (s/p colectomy 2011), and PVD (s/p L TMA 02/18) presenting from her [facility] for inability to initiate dialysis because "the AVF was clotted. An attempt was made in the hospital yesterday to cannulate the AVF with no success. The Patient had placement of a femoral catheter and is on dialysis now. - History Source History Provided By: Patient Limitations to Obtaining History: No Limitations - Past Medical History Cardio/Vascular: Yes: HTN, Hyperlipdemia, Other (PAD) Renal/: Yes: Renal Failure, Hemodialysis - Past Surgical History Past Surgical History: Yes: AV Fistula/Graft - Alcohol/Substance Use Hx Alcohol Use: No - Smoking History Smoking history: Former smoker Have you smoked in the past 12 months: No If you are a former smoker, when did you quit?: 35YRS Home Medications - Allergies Allergies/Adverse Reactions: Allergies Allergy/AdvReac Type Severity Reaction Status Date / Time oxycodone Allergy Intermediate Verified 07/22/17 16:41 cinacalcet HCl Allergy Verified 07/22/17 16:41 [From Sensipar] oxycodone HCl [From Percocet] Allergy Verified 07/22/17 16:41 - Home Medications Home Medications: Ambulatory Orders Acetaminophen 325 mg PO QID 03/09/17 Clopidogrel Bisulfate [Clopidogrel] 75 mg PO DAILY 03/09/17 Docusate Sodium [Colace -] 100 mg PO DAILY 03/09/17 Sevelamer Carbonate [Renvela -] 800 mg PO TIDCM tab 03/13/17 Amlodipine Besylate [Norvasc -] 10 mg PO DAILY #30 tab 07/24/17 Aspirin [ASA -] 81 mg PO DAILY tab.chew 07/24/17 Carvedilol [Coreg -] 25 mg PO BID #90 tablet 07/24/17 Clopidogrel Bisulfate [Plavix -] 75 mg PO MoWeFr@1000 tablet 07/24/17 Hydralazine HCl [Apresoline -] 50 mg PO TID #90 tablet 07/24/17 Losartan Potassium [Cozaar -] 50 mg PO DAILY #60 tablet 07/24/17 Review of Systems - Review of Systems Constitutional: reports: No Symptoms Eyes: reports: No Symptoms HENT: reports: No Symptoms Neck: reports: No Symptoms Cardiovascular: reports: Shortness of Breath Respiratory: reports: No Symptoms Gastrointestinal: reports: No Symptoms Neurological: reports: No Symptoms Psychiatric: reports: No Symptoms Physical Exam Vital Signs: Vital Signs Temperature 99.7 F H 07/28/17 14:48 Pulse Rate 74 07/28/17 14:48 Respiratory Rate 22 07/28/17 14:48 Blood Pressure 119/56 07/28/17 14:48 O2 Sat by Pulse Oximetry (%) 96 07/28/17 14:00 Constitutional: Yes: No Distress Eyes: Yes: Conjunctiva Clear HENT: Yes: Normocephalic Cardiovascular: Yes: Regular Rate and Rhythm, S1, S2 Respiratory: Yes: Regular Gastrointestinal: Yes: Normal Bowel Sounds, Soft Musculoskeletal: Yes: Joint Stiffness Extremities: Yes: Other (AVF left arm with NO BRUIT) Neurological: Yes: Alert, Oriented Problem List - Problems (1) Dialysis AV fistula malfunction Code(s): T82.590A - [facility] COMPL OF SURGICALLY CREATED ARTERIOVENOUS FISTULA, INIT Qualifiers: Encounter type: subsequent encounter Qualified Code(s): T82.590D - Other mechanical complication of surgically created arteriovenous fistula, subsequent encounter; T82.590D - Other mechanical complication of surgically created arteriovenous fistula, subsequent encounter (2) Anemia Code(s): D64.9 - ANEMIA, UNSPECIFIED Qualifiers: Other causes of anemia: other cause, not classified Qualified Code(s): D64.89 - Other specified anemias; D64.89 - Other specified anemias (3) ESRD (end stage renal disease) Code(s): N18.6 - END STAGE RENAL DISEASE (4) HTN (hypertension) Code(s): I10 - ESSENTIAL (PRIMARY) HYPERTENSION Qualifiers: Hypertension type: essential hypertension Qualified Code(s): I10 - Essential (primary) hypertension; I10 - Essential (primary) hypertension; I10 - Essential (primary) hypertension (5) PAD (peripheral artery disease) Code(s): I73.9 - PERIPHERAL VASCULAR DISEASE, UNSPECIFIED (6) Volume overload Code(s): E87.70 - FLUID OVERLOAD, UNSPECIFIED Qualifiers: Hypervolemia type: other Qualified Code(s): E87.79 - Other fluid overload; E87.79 - Other fluid overload Assessment/Plan his is a 72 y/o AA female with PMH of ESRD (HD M,W,F), HTN, HLD, DVT (L- Arm, ), diverticulitis (s/p colectomy 2011), and PVD (s/p L TMA 02/18) admitted with malfunctioning AVF. Temporary catheter placed in the right femoral vein and dialysis is initiated. Dialysis orders written and reviewed with RN. For Thrombectomy in the OR by Dr. Rangel. Will arrange for another dialysis after the surgery tomorrow. Thank you. Lindy Marr MD
--- NOTE | 2017-07-28 19:37 | EKG ---
Test Reason : Blood Pressure : / mmHG Vent. Rate : 067 BPM Atrial Rate : 067 BPM P-R Int : 164 ms QRS Dur : 094 ms QT Int : 466 ms P-R-T Axes : 049 -07 047 degrees QTc Int : 492 ms NORMAL SINUS RHYTHM POSSIBLE LEFT ATRIAL ENLARGEMENT LEFT VENTRICULAR HYPERTROPHY PROLONGED QT ABNORMAL ECG WHEN COMPARED WITH ECG OF 22-JUL-2017 18:38, NO SIGNIFICANT CHANGE WAS FOUND BASELINE ARTIFACT Confirmed by MICHELLE MACEDO MD ([id number]) on 07/28/2017 7:37:26 PM Referred By: Confirmed By:MICHELLE MACEDO MD
--- NOTE | 2017-07-28 21:38 | CONSULT ---
Consult - History of Present Illness History of Present Illness: 72 year old woman with ESRD on HD with left upper arm AV graft placed 1 year ago. She was evaluated 1 week ago when admitted for severe hypertension. Duplex of the graft did not reveal any problems with flow. Graft was then found to be thrombosed on Thursday at dialysis. - History Source History Provided By: Patient, Medical Record - Past Medical History Cardio/Vascular: Yes: HTN, Hyperlipdemia, Other (PAD) Renal/: Yes: Renal Failure, Hemodialysis - Past Surgical History Past Surgical History: Yes: AV Fistula/Graft - Alcohol/Substance Use Hx Alcohol Use: No - Smoking History Smoking history: Former smoker Have you smoked in the past 12 months: No If you are a former smoker, when did you quit?: 35YRS Home Medications - Allergies Allergies/Adverse Reactions: Allergies Allergy/AdvReac Type Severity Reaction Status Date / Time oxycodone Allergy Intermediate Verified 07/22/17 16:41 cinacalcet HCl Allergy Verified 07/22/17 16:41 [From Sensipar] oxycodone HCl [From Percocet] Allergy Verified 07/22/17 16:41 - Home Medications Home Medications: Ambulatory Orders RX: Acetaminophen 325 mg PO QID 03/09/17 RX: Clopidogrel Bisulfate [Clopidogrel] 75 mg PO DAILY 03/09/17 RX: Docusate Sodium [Colace -] 100 mg PO DAILY 03/09/17 RX: Sevelamer Carbonate [Renvela -] 800 mg PO TIDCM tab 03/13/17 RX: Amlodipine Besylate [Norvasc -] 10 mg PO DAILY #30 tab 07/24/17 RX: Aspirin [ASA -] 81 mg PO DAILY tab.chew 07/24/17 RX: Carvedilol [Coreg -] 25 mg PO BID #90 tablet 07/24/17 RX: Clopidogrel Bisulfate [Plavix -] 75 mg PO MoWeFr@1000 tablet 07/24/17 RX: Hydralazine HCl [Apresoline -] 50 mg PO TID #90 tablet 07/24/17 RX: Losartan Potassium [Cozaar -] 50 mg PO DAILY #60 tablet 07/24/17 Physical Exam Vital Signs: Vital Signs Temperature 99.2 F 07/28/17 18:00 Pulse Rate 68 07/28/17 18:00 Respiratory Rate 20 07/28/17 18:00 Blood Pressure 133/66 07/28/17 18:00 O2 Sat by Pulse Oximetry (%) 96 07/28/17 14:00 Constitutional: Yes: No Distress Cardiovascular: Yes: Regular Rate and Rhythm Extremities: Yes: Other (Left upper arm graft with no pulse or bruit.) Problem List - Problems (1) Dialysis AV fistula malfunction Assessment/Plan: Thrombosed AV graft. Shiley placed for dialysis access. Percutaneous thrombectomy Thursday. Code(s): T82.590A - [facility] COMPL OF SURGICALLY CREATED ARTERIOVENOUS FISTULA, INIT Qualifiers: Encounter type: initial encounter Qualified Code(s): T82.590A - Other mechanical complication of surgically created arteriovenous fistula, initial encounter; T82.590A - Other mechanical complication of surgically created arteriovenous fistula, initial encounter; T82.590A - Other mechanical complication of surgically created arteriovenous fistula, initial encounter
[2017-07-29] MEDS: hydrALAZINE HCL 50 MG TABLET (FP) PO SCH ×3 (05:38→23:02)
[2017-07-29] MEDS: SEVELAMER CARBONATE 800 MG TAB (FP) PO SCH ×3 (11:05→17:19)
[2017-07-29] MEDS: amLODIPine BESYLATE 10 MG TABLET (FP) PO SCH (11:23)
[2017-07-29] MEDS: CLOPIDOGREL BISULFATE 75 MG TABLET (FP) PO SCH (11:23)
[2017-07-29] MEDS: CARVEDILOL 25 MG TABLET (FP) PO SCH ×2 (11:23→23:02)
[2017-07-29] MEDS: LOSARTAN POTASSIUM 50 MG TABLET (FP) PO SCH (11:23)
[2017-07-29] MEDS: ASPIRIN 81 MG CHEWABLE TABLETS PO SCH (11:23)
--- NOTE | 2017-07-29 13:12 | PN ---
Progress Note, Physician Chief Complaint: 72 y/o female with ESRD admitted with clotted AVG For surgery today. History of Present Illness: This is a 72 y/o AA Female wth PMH of ESRD (HD M,W,F), HTN, HLD, DVT (L- Arm, ), diverticulitis (s/p colectomy 2011), and PVD (s/p L TMA 02/18) presenting from her D[facility] Center for inability to initiate dialysis because "the AVF was clotted. the Patient had placement of a femoral catheter and had dialysis yesterday - Current Medication List Current Medications: Active Medications Amlodipine Besylate (Norvasc -) 10 mg PO DAILY [facility] Last Admin: 07/29/17 11:23 Dose: 10 mg Aspirin (Asa -) 81 mg PO DAILY [facility] Last Admin: 07/29/17 11:23 Dose: 81 mg Carvedilol (Coreg -) 25 mg PO BID [facility] Last Admin: 07/29/17 11:23 Dose: 25 mg Clopidogrel Bisulfate (Plavix -) 75 mg PO DAILY [facility] Last Admin: 07/29/17 11:23 Dose: 75 mg Hydralazine HCl (Apresoline -) 50 mg PO TID [facility] Last Admin: 07/29/17 05:38 Dose: 50 mg Losartan Potassium (Cozaar -) 50 mg PO DAILY [facility] Last Admin: 07/29/17 11:23 Dose: 50 mg Sevelamer Carbonate (Renvela -) 800 mg PO TIDCM [facility] Last Admin: 07/29/17 11:23 Dose: Not Given - Objective Vital Signs: Vital Signs Temperature 98.4 F 07/29/17 09:53 Pulse Rate 71 07/29/17 09:53 Respiratory Rate 20 07/29/17 09:53 Blood Pressure 122/53 07/29/17 09:53 O2 Sat by Pulse Oximetry (%) 96 07/29/17 04:59 Labs: INR, PTT INR 0.99 (0.82-1.09) 07/27/17 15:42 Problem List - Problems (1) Dialysis AV fistula malfunction Code(s): T82.590A - [facility] COMPL OF SURGICALLY CREATED ARTERIOVENOUS FISTULA, INIT Qualifiers: Encounter type: initial encounter Qualified Code(s): T82.590A - Other mechanical complication of surgically created arteriovenous fistula, initial encounter; T82.590A - Other mechanical complication of surgically created arteriovenous fistula, initial encounter; T82.590A - Other mechanical complication of surgically created arteriovenous fistula, initial encounter (2) Anemia Code(s): D64.9 - ANEMIA, UNSPECIFIED Qualifiers: Other causes of anemia: other cause, not classified Qualified Code(s): D64.89 - Other specified anemias; D64.89 - Other specified anemias (3) ESRD (end stage renal disease) Code(s): N18.6 - END STAGE RENAL DISEASE (4) HTN (hypertension) Code(s): I10 - ESSENTIAL (PRIMARY) HYPERTENSION Qualifiers: Hypertension type: essential hypertension Qualified Code(s): I10 - Essential (primary) hypertension; I10 - Essential (primary) hypertension; I10 - Essential (primary) hypertension (5) PAD (peripheral artery disease) Code(s): I73.9 - PERIPHERAL VASCULAR DISEASE, UNSPECIFIED (6) Volume overload Code(s): E87.70 - FLUID OVERLOAD, UNSPECIFIED Qualifiers: Hypervolemia type: other Qualified Code(s): E87.79 - Other fluid overload; E87.79 - Other fluid overload Assessment/Plan his is a 72 y/o AA female with PMH of ESRD (HD M,W,F), HTN, HLD, DVT (L- Arm, ), diverticulitis (s/p colectomy 2011), and PVD (s/p L TMA 02/18) admitted with malfunctioning AVF. Temporary catheter placed in the right femoral vein and dialysis iwas given yesterday. For Thrombectomy in the OR by Dr. Rangel today. Will arrange for another dialysis after the surgery today. Orders written and reviewed with the RN. Thank you. Lindy Marr MD
[2017-07-29] MEDS ORDERED: HEPARIN NA (PORCINE) 5,000 UNITS/ML 1ML VIAL ONE (15:34)
[2017-07-29] MEDS ORDERED: LIDOCAINE HCL 1%, 10 MG/ML (20ML VIAL) ONE (15:35)
[2017-07-29] MEDS ORDERED: LIDOCAINE HCL 1%, 10 MG/ML (50 mL VIAL) IJ ONE (16:05)
[2017-07-29] MEDS ORDERED: MIDAZOLAM HCL 2 MG/2 ML SINGLE DOSE VIAL ONE ×2 (16:31→16:44)
[2017-07-29] MEDS ORDERED: PROPOFOL 20 ML ONE (16:31)
[2017-07-29] MEDS ORDERED: SODIUM CHLORIDE 0.9% P/F 10 ML VIAL IJ ONE (16:41)
[2017-07-29] MEDS ORDERED: ceFAZolin SODIUM 1 GM VIAL ONE (16:41)
--- NOTE | 2017-07-29 17:28 | PN ---
Progress Note, Physician - Current Medication List Current Medications: Active Medications Amlodipine Besylate (Norvasc -) 10 mg PO DAILY [facility] Last Admin: 07/29/17 11:23 Dose: 10 mg Aspirin (Asa -) 81 mg PO DAILY [facility] Last Admin: 07/29/17 11:23 Dose: 81 mg Carvedilol (Coreg -) 25 mg PO BID [facility] Last Admin: 07/29/17 11:23 Dose: 25 mg Clopidogrel Bisulfate (Plavix -) 75 mg PO DAILY [facility] Last Admin: 07/29/17 11:23 Dose: 75 mg Hydralazine HCl (Apresoline -) 50 mg PO TID [facility] Last Admin: 07/29/17 15:58 Dose: Not Given Losartan Potassium (Cozaar -) 50 mg PO DAILY [facility] Last Admin: 07/29/17 11:23 Dose: 50 mg Sevelamer Carbonate (Renvela -) 800 mg PO TIDCM [facility] Last Admin: 07/29/17 17:19 Dose: Not Given - Objective Vital Signs: Vital Signs Temperature 98.6 F 07/29/17 14:26 Pulse Rate 63 07/29/17 14:26 Respiratory Rate 18 07/29/17 14:26 Blood Pressure 127/57 07/29/17 14:26 O2 Sat by Pulse Oximetry (%) 97 07/29/17 14:00 Constitutional: Yes: No Distress HENT: Yes: Atraumatic Neck: Yes: Supple Cardiovascular: Yes: Regular Rate and Rhythm Respiratory: Yes: CTA Bilaterally Gastrointestinal: Yes: Normal Bowel Sounds Extremities: Yes: WNL Neurological: Yes: Alert, Oriented Labs: INR, PTT INR 0.99 (0.82-1.09) 07/27/17 15:42 Problem List - Problems (1) Dialysis AV fistula malfunction Assessment/Plan: s/p thrombectomy Code(s): T82.590A - [facility] COMPL OF SURGICALLY CREATED ARTERIOVENOUS FISTULA, INIT Qualifiers: Encounter type: initial encounter Qualified Code(s): T82.590A - Other mechanical complication of surgically created arteriovenous fistula, initial encounter; T82.590A - Other mechanical complication of surgically created arteriovenous fistula, initial encounter; T82.590A - Other mechanical complication of surgically created arteriovenous fistula, initial encounter (2) ESRD (end stage renal disease) Assessment/Plan: on hd Code(s): N18.6 - END STAGE RENAL DISEASE
[2017-07-29] MEDS ORDERED: SODIUM CHLORIDE 1,000 ML IV SCH ×2 (18:30→18:39)
[2017-07-29] MEDS ORDERED: ONDANSETRON 4 MG/2 ML VIAL IVPUSH PRN ×2 (18:30→18:39)
--- NOTE | 2017-07-29 18:31 | OP ---
Operative Note - Note: Operative Date: 07/29/17 Pre-Operative Diagnosis: Clotted AV graft left arm Operation: Percutaneous suction thrombectomy left arm AV graft. Venoplasty of axillary vein. Findings: Thrombosed upper arm loop graft. Stenosis of the venous anastomosis >90%. Patent arterial anastomosis. Post-Operative Diagnosis: Same as Pre-op Surgeon: Hosea Rangel Anesthesiologist/STOVE BOTTOM WORKER: Negrito Ferrari Anesthesia: Fractional
[2017-07-30] MEDS: hydrALAZINE HCL 50 MG TABLET (FP) PO SCH ×2 (06:20→14:29)
[2017-07-30] MEDS: SEVELAMER CARBONATE 800 MG TAB (FP) PO SCH ×2 (08:30→11:26)
[2017-07-30] MEDS ORDERED: CLOPIDOGREL BISULFATE 75 MG TABLET (FP) PO SCH (10:00)
[2017-07-30] MEDS ORDERED: ASPIRIN 81 MG CHEWABLE TABLETS PO SCH (10:00)
[2017-07-30] MEDS ORDERED: amLODIPine BESYLATE 10 MG TABLET (FP) PO SCH (10:00)
[2017-07-30] MEDS ORDERED: LOSARTAN POTASSIUM 50 MG TABLET (FP) PO SCH (10:00)
[2017-07-30] MEDS ORDERED: PT OWN MED DRAWER 7, Y5N ONE (10:29)
[2017-07-30] MEDS: CARVEDILOL 25 MG TABLET (FP) PO SCH (10:30)
--- NOTE | 2017-07-30 12:46 | PN ---
Progress Note, Physician Chief Complaint: 72 y/o female with ESRD admitted with clotted AVG Declotting of the AVG done and the patient received HD through the AVG last evening. The femoral catheter still in place. Patient feeling well. History of Present Illness: This is a 72 y/o AA Female wth PMH of ESRD (HD M,W,F), HTN, HLD, DVT (L- Arm, ), diverticulitis (s/p colectomy 2011), and PVD (s/p L TMA 02/18) presenting from her Dialysis Center for inability to initiate dialysis because "the AVF was clotted. tThe patient had declotting and dialysis yesterday. - Current Medication List Current Medications: Active Medications Amlodipine Besylate (Norvasc -) 10 mg PO DAILY [facility] Last Admin: 07/30/17 10:30 Dose: 10 mg Aspirin (Asa -) 81 mg PO DAILY [facility] Last Admin: 07/30/17 10:30 Dose: 81 mg Carvedilol (Coreg -) 25 mg PO BID [facility] Last Admin: 07/30/17 10:30 Dose: 25 mg Clopidogrel Bisulfate (Plavix -) 75 mg PO DAILY [facility] Last Admin: 07/30/17 10:30 Dose: 75 mg Hydralazine HCl (Apresoline -) 50 mg PO TID [facility] Last Admin: 07/30/17 06:20 Dose: 50 mg Losartan Potassium (Cozaar -) 50 mg PO DAILY [facility] Last Admin: 07/30/17 10:30 Dose: 50 mg Sevelamer Carbonate (Renvela -) 800 mg PO TIDCM [facility] Last Admin: 07/30/17 11:26 Dose: 800 mg - Objective Vital Signs: Vital Signs Temperature 99 F 07/30/17 10:27 Pulse Rate 68 07/30/17 10:27 Respiratory Rate 18 07/30/17 10:27 Blood Pressure 123/61 07/30/17 10:27 O2 Sat by Pulse Oximetry (%) 96 07/30/17 06:00 Constitutional: Yes: No Distress, Calm Eyes: Yes: Conjunctiva Clear Neck: Yes: Trachea Midline Cardiovascular: Yes: S1, S2 Respiratory: Yes: Regular, CTA Bilaterally Gastrointestinal: Yes: Normal Bowel Sounds Musculoskeletal: No: Back Pain, Joint Stiffness Edema: No Labs: INR, PTT INR 0.99 (0.82-1.09) 07/27/17 15:42 Problem List - Problems (1) Dialysis AV fistula malfunction Code(s): T82.590A - [facility] COMPL OF SURGICALLY CREATED ARTERIOVENOUS FISTULA, INIT Qualifiers: Encounter type: initial encounter Qualified Code(s): T82.590A - Other mechanical complication of surgically created arteriovenous fistula, initial encounter; T82.590A - Other mechanical complication of surgically created arteriovenous fistula, initial encounter; T82.590A - Other mechanical complication of surgically created arteriovenous fistula, initial encounter (2) Anemia Code(s): D64.9 - ANEMIA, UNSPECIFIED Qualifiers: Other causes of anemia: other cause, not classified Qualified Code(s): D64.89 - Other specified anemias; D64.89 - Other specified anemias (3) ESRD (end stage renal disease) Code(s): N18.6 - END STAGE RENAL DISEASE (4) HTN (hypertension) Code(s): I10 - ESSENTIAL (PRIMARY) HYPERTENSION Qualifiers: Hypertension type: essential hypertension Qualified Code(s): I10 - Essential (primary) hypertension; I10 - Essential (primary) hypertension; I10 - Essential (primary) hypertension (5) PAD (peripheral artery disease) Code(s): I73.9 - PERIPHERAL VASCULAR DISEASE, UNSPECIFIED (6) Volume overload Code(s): E87.70 - FLUID OVERLOAD, UNSPECIFIED Qualifiers: Hypervolemia type: other Qualified Code(s): E87.79 - Other fluid overload; E87.79 - Other fluid overload Assessment/Plan his is a 72 y/o AA female with PMH of ESRD (HD M,W,F), HTN, HLD, DVT (L- Arm, ), diverticulitis (s/p colectomy 2011), and PVD (s/p L TMA 02/18) admitted with malfunctioning AVG. The Graft was declotted and used for dialysis. The femoral catheter still in place. Once the Femoral catheter is removed, the patient can be discharged home to return to outpatient unit tomorrow. Thank you. Lindy Marr MD
--- NOTE | 2017-07-30 13:16 | PN ---
Progress Note (short form) - Note Progress Note: Anesthesia postop note 72y/o F s/p MAC for suction thrombectomy and venogram left av graft POD#1, aaox3, vss, no complaints. No anesthesia complications.
--- NOTE | 2017-07-30 14:53 | PN ---
Progress Note (short form) - Note Progress Note: Pt without complaints today. She had HD last PM via her LUE declotted AVG. No hand pain. Vital Signs Period Temp Pulse Resp BP Sys/Leyva Pulse Ox Last 24 Hr 98 F-99.1 F 58-68 14-18 95-157/39-66 96-100 GEN: appears comfortable LUE: good bruit, inc c/d/i with suture Right groin shiley removed and pressure held for 10 minutes. Dry pressure dressing applied. No evidence of bleeding. A/P; 72 yo female s/p Percutaneous suction thrombectomy left arm AV graft. Venoplasty of axillary vein. Shiley removed today, plan for discharge to home today Continue HD via LUE AVG at outpt center F/u with Dr. Rangel next week in the office D/w Dr. Rangel
[2017-07-30 15:23] VITALS: BP 109/48; PULSE 67; TEMP 97.3
--- NOTE | 2017-07-30 16:31 | DS ---
Physical Examination Vital Signs: Vital Signs Temperature 97.3 F L 07/30/17 14:21 Pulse Rate 67 07/30/17 14:21 Respiratory Rate 20 07/30/17 14:21 Blood Pressure 109/48 07/30/17 14:21 O2 Sat by Pulse Oximetry (%) 97 07/30/17 14:00 Constitutional: Yes: No Distress HENT: Yes: Atraumatic Neck: Yes: Supple Cardiovascular: Yes: Regular Rate and Rhythm Respiratory: Yes: CTA Bilaterally Gastrointestinal: Yes: Normal Bowel Sounds Extremities: Yes: WNL Neurological: Yes: Alert, Oriented Discharge Summary Reason For Visit: DIALYSIS AV FISTULA MALFUNCTION Current Active Problems Dialysis AV fistula malfunction (Acute) - Instructions Referrals: Savannah Navarro [Primary Care Provider] - - Home Medications Comprehensive Discharge Medication List: Ambulatory Orders Acetaminophen 325 mg PO QID 03/09/17 Clopidogrel Bisulfate [Clopidogrel] 75 mg PO DAILY 03/09/17 Docusate Sodium [Colace -] 100 mg PO DAILY 03/09/17 Sevelamer Carbonate [Renvela -] 800 mg PO TIDCM tab 03/13/17 Amlodipine Besylate [Norvasc -] 10 mg PO DAILY #30 tab 07/24/17 Aspirin [ASA -] 81 mg PO DAILY tab.chew 07/24/17 Carvedilol [Coreg -] 25 mg PO BID #90 tablet 07/24/17 Clopidogrel Bisulfate [Plavix -] 75 mg PO MoWeFr@1000 tablet 07/24/17 Hydralazine HCl [Apresoline -] 50 mg PO TID #90 tablet 07/24/17 Losartan Potassium [Cozaar -] 50 mg PO DAILY #60 tablet 07/24/17 mo home
--- NOTE | 2017-08-01 13:01 | OP ---
DATE OF OPERATION: 07/29/2017 SURGEON: Hosea Rangel MD PROCEDURE: Percutaneous suction thrombectomy of left arm arteriovenous graft with venoplasty of the axillary vein. PREOPERATIVE DIAGNOSIS: Thrombosed arteriovenous graft. POSTOPERATIVE DIAGNOSIS: Thrombosed arteriovenous graft. ANESTHESIA: Fractional. ANESTHESIOLOGIST: Negrito Ferrari MD OPERATIVE FINDINGS: The left upper arm loop graft was thrombosed. Following thrombectomy, there was a 90% stenosis at the venous anastomosis. There was no evidence of central vein stenosis. The arterial anastomosis was patent. OPERATIVE PROCEDURE: Following routine patient identification with side and site verification, intravenous sedation was established. The left arm was prepped with ChloraPrep and sterilely draped. Time-out was performed. Using real-time duplex imaging, the AV graft in the upper arm was identified. There was a loop configuration. Lidocaine was infiltrated over the medial aspect of the arm in the loop that was expected to be the arterial side. The graft was cannulated under ultrasound guidance with a micropuncture needle pointing towards the elbow. A wire was advanced into the graft, and the needle was exchanged for a 5-Palestinian catheter. The catheter was exchanged over a wire for a 7-Palestinian sheath. The angle-tip wire and Berenstein catheter were then advanced towards the elbow, and then, around the loop back towards the axilla. The wire and catheter were brought up as far as possible, and it appeared to be extending towards a calcified axillary artery. Contrast was injected through the catheter that did, indeed, confirm that this was the arterial anastomosis, which was unexpected based on the configuration of the graft. Therefore, additional Xylocaine was infiltrated over the anterior limb of the graft. It was also cannulated, directed distally. Wire and catheter were placed, and then a 7-Palestinian sheath. The angled wire and Berenstein catheter were then advanced through this sheath back around and into the axillary vein. Contrast was injected to confirm patency of the vein. Patient was systemically heparinized. An angled wire was then reintroduced and passed into the right atrium. The catheter was removed. The AVX catheter was used to perform thrombolysis with suction from the AngioJet device. I took several passes of the catheter. A No. 4 Domenico catheter was used to retrieve clot into the sheath, which was removed, flushed, and replaced over dilator. Contrast was then injected into the graft, which flowed down to the obstructing area where the original sheath had been placed. A stenosis in the outflow vein was identified, but could not be treated until this sheath was removed. Therefore, a thrombolysis was performed through the original sheath down to the arterial end, and Domenico catheter used to remove thrombus from the graft and restore arterial inflow. This sheath was then removed, and the skin closed with a mattress suture of 3-0 nylon. Working through the remaining sheath, additional suction thrombectomy was performed, and then, the area of stenosis in the axillary vein was balloon dilated with a 6-mm balloon and then a 7-mm balloon, resulting in improved outflow and no residual stenosis identified. There was still sluggish flow through the graft, and it was apparent that there were still problems with the arterial inflow. Accordingly, sheath was replaced into the medial aspect of the graft, while the anterior sheath was removed. Repeat thrombectomy allowed clearing of the entire graft with return of excellent inflow and outflow through the graft. The remaining sheath was removed, sutures placed, and the patient taken to the recovery room in stable condition. Isac [id number]
== END 2017-07-30 16:55 | disposition home or self-care (01) ==
LOC: JER 14:41 → J5S 17:38 → INTOOBSV 17:38
PROVIDERS: ADMIT Internal Medicine; ATTEND Internal Medicine
PROC: 05C83ZZ Extirpation of Matter from Left Axillary Vein, Percutaneous Approach (ICD-10-PCS; principal; 2017-07-27)
DX: T82.590A Other mechanical complication of surgically created arteriovenous fistula, initial encounter (principal); T82.868A Thrombosis due to vascular prosthetic devices, implants and grafts, initial encounter; I12.0 Hypertensive chronic kidney disease with stage 5 chronic kidney disease or end stage renal disease; E11.22 Type 2 diabetes mellitus with diabetic chronic kidney disease; N18.6 End stage renal disease; Z99.2 Dependence on renal dialysis; D64.9 Anemia, unspecified; Z79.84 Long term (current) use of oral hypoglycemic drugs; E78.5 Hyperlipidemia, unspecified; I73.9 Peripheral vascular disease, unspecified; Z88.6 Allergy status to analgesic agent; Z86.718 Personal history of other venous thrombosis and embolism; Z86.73 Personal history of transient ischemic attack (TIA), and cerebral infarction without residual deficits; Z90.49 Acquired absence of other specified parts of digestive tract; Z87.891 Personal history of nicotine dependence; Y92.9 Unspecified place or not applicable; Y83.8 Other surgical procedures as the cause of abnormal reaction of the patient, or of later complication, without mention of misadventure at the time of the procedure; E87.79 Other fluid overload
CPT/HCPCS: 36415; 71010-TC; 76000-TC; 80053; 83880; 85025; 85610; 86850; 86900; 86901; 93005; 93010; 93971; 94760; 99282-25; G0378; J0885; J1644